=== PATIENT | female | born 1970 | race Caucasian/White ===

== ENCOUNTER 2020-07-08 15:47 | Outpatient (CLI) | payer OTHER, SELFPAY ==
[2020-07-08 16:14] LABS: Basophils Absolute Auto 0.08 K/mm3 (0.00-0.10); Basophils Percent Auto 1.2 % (0.0-1.0); Eosinophils Absolute Auto 0.19 K/mm3 (0.02-0.50); Eosinophils Percent Auto 2.9 % (1.0-6.0); Hematocrit 41.3 % (35.0-49.0); Hemoglobin 13.8 g/dL (12.0-15.0); Immature Granulocyte Absolute 0.01 K/mm3 (0.00-0.00); Immature Granulocyte Percent A 0.2 % (0.0-0.0); Lymphocytes Absolute Auto 2.79 K/mm3 (1.10-4.50); Mean Corpuscular HGB Conc 33.4 g/dL (32.0-36.0); Mean Corpuscular Hemoglobin 31.7 pg (27.0-31.0); Mean Corpuscular Volume 94.7 fL (78.0-102.0); Mean Platelet Volume 10.5 fl (9.2-11.8); Monocytes Absolute Auto 0.46 K/mm3 (0.10-0.90); Monocytes Percent Auto 7.1 % (2.0-11.0); Neutrophils Percent Auto 45.6 % (50.0-70.0); Platelet Count Result 272 K/mm3 (150-420); Red Blood Count 4.36 M/mm3 (4.20-5.40); Red Cell Distribution Width 13.1 % (11.6-14.4); White Blood Count 6.5 K/mm3 (4.8-10.8)
[2020-07-08 17:35] LABS: Alanine Aminotransferase 19 U/L (14-59); Albumin Level 2.6 g/dL (3.4-5.0); Alkaline Phosphatase 97 U/L (46-116); Anion Gap 11 mmol/L (8-16); Aspartate Amino Transferase 11 U/L (15-37); Bilirubin,Total 0.5 mg/dL (0.00-1.00); Blood Urea Nitrogen 19 mg/dL (7-18); Calcium 10.1 mg/dL (8.5-10.1); Carbon Dioxide 27 mmol/L (21-32); Chloride 103 mmol/L (98-108); Cholesterol 204 mg/dL (0-200); Estimated Glomerular Filt Rate 56; Free T4 Free Thyroxine 0.91 ng/dL (0.76-1.46); Glucose 88 mg/dL (70-99); HDL Direct 54 mg/dL (40-60); LDL Cholesterol Calculated 133 mg/dL (<130); Osmolality Calculated 293 mOsm/kg (285-295); Potassium 4.1 mmol/L (3.5-5.1); Sodium 141 mmol/L (136-145); Thyroid Stimulating Hormone 0.73 uIU/mL (0.36-3.74); Total Protein 7.5 g/dL (6.4-8.2); Triglycerides 85 mg/dL (0-150)
[2020-07-12 23:26] LABS: Valproic Acid 49.5 mg/L (50.0-100.0)
== END 2020-07-08 15:48 | disposition home or self-care (01) ==
PROVIDERS: PCP Family Medicine
DX: Z79.899 Other long term (current) drug therapy (principal)
CPT/HCPCS: 36415; 80053; 80061; 80164; 84439; 84443; 85025

== ENCOUNTER 2020-10-20 11:00 | Outpatient (RCR) | payer OTHER, SELFPAY ==
--- NOTE | 2020-10-20 12:01 | PTOPEVAL ---
Thank you for referring Patricia Pink to [facility].? The patient is scheduled to be seen for therapy? ___3_x/week for 12 visits. Please review, sign, date and return this plan of care CRYSTAL. I agree with and certify that the following plan of care is medically necessary. Referring Physician Date Admitting Provider: Attending Provider: DRU JORDAN Referring Provider: CARYN Outpatient Evaluation Start: 10/20/20 08:03 Freq: Status: Active Protocol: Document 10/20/20 11:11 ACR (Rec: 10/20/20 12:01 ACR [id number]) Therapy Assessment Status Assessment Status Assessment Status Evaluation Evaluation Information Problem Diagnosis R shoulder pain Onset 09/27/20 Subjective Information Patient states that she has Query Text:As Reported By Patient/ had two surgeries on the R Family shoulder. About 6 weeks ago she slipped and fell and heard a loud pop. She went to the doctor recently and got an X- ray which was negative and a cortizone shot which has helped with the pain. She is going back to the MD on . She states she has had therapy for her shoulder before. Patient states that she is having difficulty sleeping, carrying objects, folding and hanging up clothes , driving, and lifting objects . 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 Hand Dominance Right Activity of Daily Living Ability Independent Indoor/Home Mobility Independent Community Mobility Independent Stairs Ability Independent Functional Cognition (Planning, Shopping Independent , Taking Medications) Cooking Yes Cleaning Yes Laundry Yes Shopping Yes Driving Yes Pain Assessment Timing of Pain Assessment Timing of Pain Assessment Pre-Treatment Pain Scale Pain Scale Used Numeric (1 - 10) Self Report Pain Assessment Right Shoulder(s) Reported Pain Level 3 Pain Description Aching,Crushing Lowest Pain Intensity 1 Greatest Pain Intensity 7 Pain Score Pain Score 3: Self Report Interventions Used Interventions Used By Clinicians Activity or ADL's,Edu
--- NOTE | 2020-11-16 13:24 | PCPTNOTE ---
patient cancelled appt today due to a migraine. ANGELIQUE
--- NOTE | 2020-12-03 08:33 | PCPTNOTE ---
Patient participated in 9 visits for R shoulder pain. The patient was called and no call was returned so the patient is to be discharged at this time. Please refer to last treatment note for discharge status. Thank you, NERI SamayoaT
== END 2020-11-18 09:13 | disposition home or self-care (01) ==
LOC: CHSPT 11:00
DX: M25.511 Pain in right shoulder (principal)
CPT/HCPCS: 97014; 97110; 97161; G0283

== ENCOUNTER 2022-05-30 13:56 | Emergency (ER) | payer OTHER, SELFPAY ==
[2022-05-30] VITALS (7 sets, daily range): BP systolic 106–127; BP diastolic 61–74; PULSE 53–90; RESP 16–18; TEMP 36.4–36.7; O2SAT 96–100
--- NOTE | ~2022-05-30 | CT_ITS ---
EXAMINATION: CT diagnostic chest wo con DATE: 05/30/2022 17:33 INDICATION: Chest and back pain when coughing TECHNIQUE: Computed tomography (CT) of the chest was performed without intravenous contrast. The dose -length product (DLP) was 156.59 mGy-cm. Automated exposure control and iterative reconstruction tech nique were employed. COMPARISON: None FINDINGS: There is mild to moderate emphysema. Mild dependent atelectasis is noted. No pleural effusi on or pneumothorax. There are bilateral breast implants. Calcified right hilar and right paratracheal lymph nodes are consistent with old granulomatous disease. No pathologically enlarged thoracic lymph nodes are identified. The heart size is normal. There is severe thoracic spondylosis. Punctate calci fications in otherwise normal appearing liver and spleen likely represent healed granulomatous diseas e. The gallbladder is surgically absent. IMPRESSION: 1. Mild atelectasis. Reviewed, dictated and finalized at location A. IMPRESSION: 1. Mild atelectasis.
--- NOTE | ~2022-05-30 | XR_ITS ---
EXAMINATION: XR chest 1V portable INDICATION: Chest pain TECHNIQUE: Portable AP chest at 1447 hours COMPARISON: None available FINDINGS: There are minimal airspace opacities of the right lung base. No pleural effusion or pneumot horax. The heart size is normal. A calcified right hilar lymph nodes consistent with old granulomatou s disease. There is a left-sided breast implant. Suture anchors are noted in the right humeral head. IMPRESSION: 1. Minimal right basilar airspace opacity, consistent with atelectasis versus pneumonia. Reviewed, dictated and finalized at location A. IMPRESSION: 1. Minimal right basilar airspace opacity, consistent with atelectasis versus p neumonia.
--- NOTE | 2022-05-30 14:28 | ECG_ITS ---
Measurements Intervals [place] Rate: 49 P: 58 TN: 140 QRS: 22 QRSD: 99 T: 44 QT: 432 QTc: 390 Interpretive Statements SINUS BRADYCARDIA OTHERWISE NORMAL ECG NO PREVIOUS ECG AVAILABLE FOR COMPARISON Electronically Signed On 05-31-2022 13:59:56 CDT by Lonnie Mcrae M.D.
[2022-05-30 14:50] LABS: Basophils Absolute Auto 0.07 K/mm3 (0.00-0.10); Basophils Percent Auto 0.9 % (0.0-1.0); Eosinophils Absolute Auto 0.18 K/mm3 (0.02-0.50); Eosinophils Percent Auto 2.2 % (1.0-6.0); Hematocrit 41.5 % (35.0-49.0); Hemoglobin 13.8 g/dL (12.0-15.0); Immature Granulocyte Absolute 0.02 K/mm3 (0.00-0.00); Immature Granulocyte Percent A 0.2 % (0.0-0.0); Lymphocytes Absolute Auto 2.47 K/mm3 (1.10-4.50); Lymphocytes Percent Auto 30.8 % (18.0-42.0); Mean Corpuscular HGB Conc 33.3 g/dL (32.0-36.0); Mean Corpuscular Hemoglobin 30.7 pg (27.0-31.0); Mean Corpuscular Volume 92.2 fL (78.0-102.0); Mean Platelet Volume 9.8 fl (9.2-11.8); Monocytes Absolute Auto 0.54 K/mm3 (0.10-0.90); Monocytes Percent Auto 6.7 % (2.0-11.0); Neutrophils Absolute Auto 4.8 K/mm3 (1.7-7.2); Neutrophils Percent Auto 59.2 % (50.0-70.0); Platelet Count Result 289 K/mm3 (150-420); Red Cell Distribution Width 13.7 % (11.6-14.4)
[2022-05-30 14:51] LABS: Add Urine Microscopic? YES; Appearance Urine Clear (Clear); Bilirubin Urine Negative (Negative); Blood Urine Negative (Negative); Color Urine Yellow (Yellow); Glucose Urine UA Negative (Negative); Ketones Urine Negative (Negative); Leukocyte Esterase Ur Trace (Negative); Nitrate Urine Negative (Negative); Protein Urine Negative (Negative); Urobilinogen Urine 0.2 mg/dL (0.2-1.0)
[2022-05-30 14:57] LABS: RBC Urine 0-2 /hpf (0-2); Squamous Epithelial Cell Urine Few /hpf (Few); WBC Urine 0-3 /hpf (0-3)
[2022-05-30 14:58] LABS: Bacteria Urine Trace /hpf
[2022-05-30] MEDS: methylPREDNISolone SOD SUCC 125 MG VIAL IM (15:06)
[2022-05-30] MEDS: KETOROLAC 30 MG/ML VIAL (*BKC) IM (15:07)
[2022-05-30 15:08] LABS: Alanine Aminotransferase 14 U/L (14-59); Albumin Level 3.7 g/dL (3.4-5.0); Alkaline Phosphatase 97 U/L (46-116); Anion Gap 8 mmol/L (8-16); Aspartate Amino Transferase 12 U/L (15-37); Bilirubin,Total 0.4 mg/dL (0.00-1.00); Blood Urea Nitrogen 12 mg/dL (7-18); Calcium 9.1 mg/dL (8.5-10.1); Carbon Dioxide 29 mmol/L (21-32); Chloride 104 mmol/L (98-108); Estimated CRCL calculation 65 ml/min; Estimated Glomerular Filt Rate > 60; Glucose 111 mg/dL (70-99); Osmolality Calculated 292 mOsm/kg (285-295); Potassium 3.9 mmol/L (3.5-5.1); Sodium 141 mmol/L (136-145); Total Protein 6.9 g/dL (6.4-8.2); Troponin I 5.3 ng/L (0.00-60.4)
--- NOTE | 2022-05-30 15:10 | PC.NURSE ---
WARM BLANKETS PROVIDED TO PT. PT DENIES ANY NEEDS AT THIS TIME. PT IS AWAITING EKG AND NEB TX. PT IS AWARE OF PLAN OF CARE. NAD NOTED. WILL CONTINUE TO MONITOR.
[2022-05-30] MEDS: IPRATROPIUM 0.5 MG/ALBUTEROL SULFATE 2.5 MG AMPUL.NEB 3 ML INHALATION (15:26)
--- NOTE | 2022-05-30 16:57 | PC.NURSE ---
PEPSI PROVIDED REQUESTED. NAD AT THIS TIME. PT IS AWAITING ERP DECISION. WILL CONTINUE TO MONITOR.
--- NOTE | 2022-05-30 18:00 | ED.URI ---
HPI - URI/Sore Throat General Chief Complaint: Upper Respiratory Infection Stated Complaint: COUGH/CHEST AND BACK HURT WHEN BREATH/CONGESTION Time Seen by Provider: 05/30/22 13:59 Source: patient and RN notes reviewed Mode of arrival: ambulatory Limitations: no limitations History of Present Illness MD elicited complaint: cough and other (chest wall pain) Onset (ago): day(s) (2) Consistency: constant and progressively worsening Severity: mild Pain scale (0-10): 4 Able to tolerate fluids by mouth: Yes Exacerbating factors: deep breaths Relieving factors: OTC cold medicine Associated symptoms: cough, chest pain and shortness of breath Related Data Home Medications Medication Instructions Recorded Confirmed citalopram 40 mg tablet 40 mg PO DAILY 05/30/22 05/30/22 divalproex 500 mg tablet,extended 500 mg PO BID 05/30/22 05/30/22 release 24 hr omeprazole 40 mg capsule,delayed 40 mg PO DAILY 05/30/22 05/30/22 release Allergies Allergy/AdvReac Type Severity Reaction Status Date / Time Sulfa (Sulfonamide AdvReac Unknown Verified 05/30/22 14:25 Antibiotics) Review of Systems Review of Systems: All systems reviewed & are unremarkable except as noted in HPI and below Constitutional: Constitutional: Reports no additional constitutional complaints Eyes: Eyes: Reports no additional eye complaints ENT: Reports system reviewed and no additional complaints, except as documented Cardiovascular: Cardiovascular: Reports no additional cardiovascular complaints and Reports chest pain Respiratory: Respiratory: Reports no additional respiratory complaints, Reports chest congestion, Reports cough and Reports dyspnea Gastrointestinal: Gastrointestinal: Reports no additional gastrointestinal complaints Genitourinary: Genitourinary: Reports no additional female genitourinary complaints Musculoskeletal: Musculoskeletal: Reports no additional musculoskeletal complaints Integumentary/Breasts: Skin/Breast: Reports system reviewed and no additional complaints, except as docu Neurologic: Reports system reviewed and no additional complaints, except as documented Psychiatric: Psychiatric: Reports no additional psychiatric complaints Endocrine: Endocrine: Reports no additional endocrine complaints Hematologic/Lymphatic: Hematologic/Lymphatic: Reports no additional hematologic/lymphatic complaints Allergic/Immunologic: Allergic/Immunologic: Reports no additional allergic/immunologic complaints PMFSH Past Medical History Medical History (Updated 06/04/22 @ 07:21 by Olga Peoples MD) Chest wall pain Viral syndrome Exam Const: General: no acute distress and well nourished Nutritional Appearance: well nourished Orientation/consciousness: patient oriented x3 Limitations: no limitations HENMT: Head: normal to inspection Ears: external ears normal, TM's normal bilaterally and EAC's normal Face/Nose/Sinus: Normal external nose present, Normal nares present, normal facial exam and sinuses nontender Face and sinus: normal facial exam and sinuses nontender Mouth: Yes Normal oral and palatal mucosa present and Yes moist mucous membranes Teeth and gingiva: dentition normal Throat: posterior oropharynx normal Eyes: Conjunctivae: conjunctivae normal Pupils: Equal, round and reactive pupils present EOM: EOMs intact bilaterally Neck: Neck: normal visual inspection, no lymphadenopathy and no meningeal signs Chest: Chest palpation & inspection: normal inspection of the chest Resp: Effort & Inspection: normal respiratory effort Auscultation: rhonchi and wheezes Cardio: Rate: regular rate Rhythm: regular rhythm GI: GI Palp: Yes Soft to palpation and No Tenderness to palpation present (GI) Auscultation: normal bowel sounds : General: Yes bladder normal to palpation and Yes no CVA tenderness Bimanual exam- vagina & uterus: bladder normal to palpation Back/Spine/Pelvis: Back: no CVA tenderness Skin: General skin
--- NOTE | 2022-05-30 18:00 | PC.NURSE ---
V/O WAS GIVEN BY DR LOMAS TO DC IV AND IVF.
== END 2022-05-30 18:15 | disposition home or self-care (01) ==
PROVIDERS: Emergency Provider Emergency Medicine
DX: J06.9 Acute upper respiratory infection, unspecified (principal); J40 Bronchitis, not specified as acute or chronic; B34.9 Viral infection, unspecified
CPT/HCPCS: 36415; 36600; 71045; 71250; 80053; 81001; 84484; 85025; 93005; 94640; 96372; 99284; J1885; J2930

== ENCOUNTER 2022-06-14 15:09 | Emergency (ER) | payer OTHER, SELFPAY ==
--- NOTE | ~2022-06-14 | XR_ITS ---
EXAMINATION: XR chest 2V Exam Date/Time: 06/14/2022 17:30 CDT HISTORY: cough Comparison: 05/30/2022, CT and x-ray. RESULT: Lines, tubes, and devices: Bilateral breast augmentation. Calcification of the left implant capsule. Lungs and pleura: Emphysematous change. Cardiomediastinal silhouette: Hilar node calcification, otherwise unremarkable. Other: No acute osseous or upper abdominal finding. IMPRESSION: No acute cardiopulmonary process. Reviewed, dictated and finalized at location K.
[2022-06-14 15:17] VITALS: BP 145/88; PULSE 89; RESP 17; TEMP 37.1; O2SAT 97
--- NOTE | 2022-06-14 15:42 | ED.GENADULT ---
HPI - General Adult General Chief complaint: Shortness of Breath/Dyspnea Stated complaint: trouble breathing Time Seen by Provider: 06/14/22 15:41 Source: patient Mode of arrival: ambulatory Limitations: no limitations History of Present Illness HPI narrative: Patient is a 51-year-old white female with approximately 66 pack years complains of having a bronchitis 2 weeks ago she was treated with a Medrol Dosepak amoxicillin and albuterol meter dose inhaler she got better but her cough persisted and she has had 3 or 4 days worsening productive of a brownish green sputum and occasional headache. She is short of breath with exertion. complains of a headache last few days the top of her head throbbing. She has taken Tylenol and ibuprofen without much help. Related Data Home Medications Medication Instructions Recorded Confirmed citalopram 40 mg tablet 40 mg PO DAILY 05/30/22 06/14/22 divalproex 500 mg tablet,extended 500 mg PO BID 05/30/22 06/14/22 release 24 hr omeprazole 40 mg capsule,delayed 40 mg PO DAILY 05/30/22 06/14/22 release Allergies Allergy/AdvReac Type Severity Reaction Status Date / Time Sulfa (Sulfonamide AdvReac Unknown Verified 06/14/22 15:25 Antibiotics) Review of Systems Review of Systems: All systems reviewed & are unremarkable except as noted in HPI and below Constitutional: Constitutional: Reports no additional constitutional complaints, Denies chills, Denies fatigue, Denies fever(s) and Denies weakness Eyes: Eyes: Reports no additional eye complaints ENT: Reports system reviewed and no additional complaints, except as documented Cardiovascular: Cardiovascular: Reports no additional cardiovascular complaints and Denies chest pain Respiratory: Respiratory: Reports as per HPI, Reports no additional respiratory complaints, Reports chest congestion, Reports cough, Reports dyspnea and Reports wheezing Gastrointestinal: Gastrointestinal: Reports no additional gastrointestinal complaints Genitourinary: Genitourinary: Reports no additional female genitourinary complaints Musculoskeletal: Musculoskeletal: Reports no additional musculoskeletal complaints Integumentary/Breasts: Skin/Breast: Reports system reviewed and no additional complaints, except as docu Neurologic: Reports system reviewed and no additional complaints, except as documented, Reports as per HPI and Reports headache(s) PMFSH Past Medical History Medical History Bipolar depression Chest wall pain Viral syndrome Surgical History Surgical History Hx of appendectomy Family History Family History (Updated 06/14/22 @ 16:24 by Lonnie Levy MD) Other Family history of lung cancer Exam Const: General: healthy appearing Nutritional Appearance: well nourished Orientation/consciousness: patient oriented x3 Limitations: no limitations Other: white female appears in no apparent distress she looks older than her stated age. Head is normocephalic atraumatic eyes conjunctiva pink sclera nonicteric. Oropharynx is clear with moist mucous membranes without exudates. Neck is supple no lymphadenopathy. Lungs show diffuse wheezes with fair air exchange without rhonchi or rales. Heart is regular rate rhythm without murmurs gallops or rubs. Abdomen is soft and nontender no hepatosplenomegaly or masses no CVA tenderness no abdominal bruits. Extremities no cyanosis clubbing or edema. Negative Holmans sign. Neurological she is alert and oriented x4 motor and sensory grossly intact. Gait is normal. Speech is normal. Course Course Emergency Course: Patient was given a DuoNeb. Blood cultures were drawn. Her albuteroll nebulizer helped quite a bit. She demonstrate poor technique with use of her meter dose inhaler. She is given education by myself with this regard. She is given Toradol 30 mg IV
--- NOTE | 2022-06-14 15:55 | ECG_ITS ---
Measurements Intervals [place] Rate: 76 P: 68 CT: 140 QRS: 1 QRSD: 96 T: 39 QT: 351 QTc: 395 Interpretive Statements SINUS RHYTHM WITH SINUS ARRHYTHMIA POSSIBLE LEFT ATRIAL ENLARGEMENT BASELINE ARTIFACT- I, II, III, AVR, AVL, AVF BORDERLINE ECG COMPARED TO ECG 05/30/2022 15:33:44 SINUS RHYTHM NOW PRESENT SINUS ARRHYTHMIA NOW PRESENT Electronically Signed On 06-14-2022 21:07:50 CDT by Brant Samuel D.O.
[2022-06-14] MEDS: IPRATROPIUM 0.5 MG/ALBUTEROL SULFATE 2.5 MG AMPUL.NEB 3 ML INHALATION (16:20)
[2022-06-14 16:21] VITALS: PULSE 87; RESP 18; O2SAT 97
[2022-06-14 16:32] VITALS: PULSE 88; RESP 18; O2SAT 99
[2022-06-14 16:39] LABS: Basophils Absolute Auto 0.05 K/mm3 (0.00-0.10); Basophils Percent Auto 0.3 % (0.0-1.0); Eosinophils Absolute Auto 0.15 K/mm3 (0.02-0.50); Eosinophils Percent Auto 0.9 % (1.0-6.0); Hematocrit 42.8 % (35.0-49.0); Hemoglobin 14.7 g/dL (12.0-15.0); Immature Granulocyte Absolute 0.07 K/mm3 (0.00-0.00); Immature Granulocyte Percent A 0.4 % (0.0-0.0); Lymphocytes Absolute Auto 2.24 K/mm3 (1.10-4.50); Lymphocytes Percent Auto 13.1 % (18.0-42.0); Mean Corpuscular HGB Conc 34.3 g/dL (32.0-36.0); Mean Corpuscular Hemoglobin 31.3 pg (27.0-31.0); Mean Corpuscular Volume 91.1 fL (78.0-102.0); Mean Platelet Volume 10.1 fl (9.2-11.8); Monocytes Absolute Auto 0.85 K/mm3 (0.10-0.90); Neutrophils Absolute Auto 13.7 K/mm3 (1.7-7.2); Neutrophils Percent Auto 80.3 % (50.0-70.0); Platelet Count Result 334 K/mm3 (150-420); Red Cell Distribution Width 13.6 % (11.6-14.4); White Blood Count 17.1 K/mm3 (4.8-10.8)
[2022-06-14 16:55] LABS: D Dimer 0.38 mg/L (0.19-0.50); Partial Thromboplastin Time 27.1 SEC (23.90-30.70); Prothrombin Time 10.9 Seconds (9.50-12.10)
[2022-06-14 17:01] LABS: Alanine Aminotransferase 18 U/L (14-59); Albumin Level 3.9 g/dL (3.4-5.0); Alkaline Phosphatase 117 U/L (46-116); Anion Gap 8 mmol/L (8-16); Aspartate Amino Transferase 13 U/L (15-37); Bilirubin,Total 0.5 mg/dL (0.00-1.00); Blood Urea Nitrogen 12 mg/dL (7-18); Calcium 9.1 mg/dL (8.5-10.1); Carbon Dioxide 28 mmol/L (21-32); Chloride 102 mmol/L (98-108); Estimated CRCL calculation 59 ml/min; Estimated Glomerular Filt Rate > 60; Glucose 92 mg/dL (70-99); NT Pro B Type Natriuretic Pept 50 pg/mL (0-125); Osmolality Calculated 285 mOsm/kg (285-295); Potassium 3.6 mmol/L (3.5-5.1); Sodium 138 mmol/L (136-145); Total Protein 7.7 g/dL (6.4-8.2); Troponin I 4.1 ng/L (0.00-60.4)
[2022-06-14] MEDS: KETOROLAC 30 MG/ML VIAL (*BKC) IV PUSH (17:09)
[2022-06-14 17:14] LABS: Influenza A QL RT-PCR Negative (Negative); Influenza B QL RT-PCR Negative (Negative)
[2022-06-14 17:21] LABS: RSV RNA, RT-PCR Negative (Negative); SARS-CoV-2 RNA PCR Negative (Negative)
[2022-06-14 17:41] VITALS: BP 146/91; PULSE 95; RESP 18; TEMP 36.8; O2SAT 97
--- NOTE | 2022-06-14 17:41 | PC.NURSE ---
PT HAS RETURNED FROM RADIOLOGY. NAD NOTED. PT REPORTS SHE IS FEELING BETTER POST NEB TX. MEDICATION WAS ADMINISTERED FOR HER HEADACHE. NAD NOTED. WILL CONTINUE TO MONITOR.
== END 2022-06-14 18:25 | disposition home or self-care (01) ==
PROVIDERS: Emergency Provider Emergency Medicine
DX: J44.1 Chronic obstructive pulmonary disease with (acute) exacerbation (principal)
CPT/HCPCS: 36415; 71046; 80053; 83880; 84484; 85025; 85380; 85610; 85730; 87040; 87502; 87637; 93005; 94640; 96374; 99284; J1885; U0003; U0005

== ENCOUNTER 2022-07-28 11:45 | Emergency (ER) | payer OTHER, SELFPAY ==
[2022-07-28 13:03] VITALS: BP 137/80; PULSE 83; RESP 20; TEMP 36.5; O2SAT 98
--- NOTE | 2022-07-28 14:01 | ED.URI ---
HPI - URI/Sore Throat General Chief Complaint: Upper Respiratory Infection Stated Complaint: Headache Time Seen by Provider: 07/28/22 14:00 Source: patient Mode of arrival: ambulatory Limitations: no limitations History of Present Illness HPI Narrative: 52 year old female with complaints of headache, nausea and vomiting, chills, sinus drainage no known fevers since yesterday morning. Patient denies any known ill contacts. Patient has not had COVID vaccinations or flu Shot. Patient reports that she has been taking Tylenol,Ibuprofen and Excedrin for her symptoms. Patient does have history of COPD and also tobacco abuse denies any acute shortness of breath admits to some dry cough. MD elicited complaint: other (headache and nausea and vomiting) Pertinent past history: COPD and other (tobacco abuse) Onset (ago): day(s) (day 2 of symptoms) Pain scale (0-10): 6 Treatments prior to arrival: acetaminophen, ibuprofen and other (excedrin) Related Data Home Medications Medication Instructions Recorded Confirmed citalopram 40 mg tablet 40 mg PO DAILY 05/30/22 07/28/22 divalproex 500 mg tablet,extended 500 mg PO BID 05/30/22 07/28/22 release 24 hr omeprazole 40 mg capsule,delayed 40 mg PO DAILY 05/30/22 07/28/22 release Allergies Allergy/AdvReac Type Severity Reaction Status Date / Time Sulfa (Sulfonamide AdvReac Unknown Verified 07/28/22 13:13 Antibiotics) Review of Systems Review of Systems: CONSTITUTIONAL: Reports malaise, chills, sweats, or fever. EYES: Denies visual changes, redness, or discharge. ENT: Reports rhinorrhea, congestion, sinus pain, no otalgia and sore throat. CARDIOVASCULAR: Denies chest pain, palpitations, or edema. RESPIRATORY: Reports cough.? Denies dyspnea. GASTROINTESTINAL: Denies abdominal pain, positive for nausea, vomiting,no diarrhea SKIN: Denies rash or itching. MUSCULOSKELETAL: Reports myalgia. NEUROLOGIC:Reports headache. All systems reviewed & are unremarkable except as noted in HPI and below PMFSH Past Medical History Medical History (Updated 08/07/22 @ 22:42 by Annie Byrd NP) Bipolar depression Bronchitis Chest wall pain COPD (chronic obstructive pulmonary disease) Viral syndrome Surgical History Surgical History (Updated 08/07/22 @ 22:40 by Annie Byrd NP) H/O breast augmentation H/O: hysterectomy History of ankle surgery ORIF bilateral ankles History of repair of rotator cuff right Hx of appendectomy Hx of cervical spine surgery Hx of cholecystectomy Family History Family History (Updated 06/14/22 @ 16:24 by Lonnie Levy MD) Other Family history of lung cancer Social History Social History (Updated 08/07/22 @ 22:38 by Annie Byrd NP) Smoking packs per day: 2 Smoking cigarettes per day: 40.0 Years smoked: 30 Smoking pack-years: 60.00 Smoking status: Current every day smoker Alcohol intake: former Alcohol use details: no alcohol for 29 years Substance use type: does not use Gender identity (if verbalized by the patient): Female Comments At time of signature, agree with nursing past medical, surgical, social and family history. There is no relevant family history pertinent to the presenting complaint Exam Narrative: GENERAL: Well-appearing, well-nourished, and in no acute distress. HEAD: Normocephalic EYES: PERRLA, conjunctivae clear ENT: Nares clear, turbinates edematous and erythematous, clear discharge. Mucous membranes moist. TM pearly alegre with dull light reflex bilaterally; no tragal tenderness. Oropharynx erythematous without lesions. Tonsils not enlarged and without exudate, no drooling, no hoarseness, no trismus, uvula midline. NECK: Supple. No lymphadenopathy CHEST: Coarse to auscultation, breath sounds equal. No wheezing, rhonchi, rales, or stridor. No respiratory distress, speaks in full sentences. dry coughSAO2 98% on room air HEART: Regular rate and rhythm. No murmur
== END 2022-07-28 15:22 | disposition home or self-care (01) ==
PROVIDERS: Emergency Provider Registered Nurse; PCP Nurse Practitioner Family
DX: U07.1 COVID-19 (principal)
CPT/HCPCS: 87426; 87804; 99213; C9803; G0463

== ENCOUNTER 2022-12-10 19:15 | Emergency (ER) | payer OTHER, SELFPAY ==
[2022-12-10 19:25] VITALS: BP 142/80; PULSE 87; RESP 18; TEMP 36.7; O2SAT 98
--- NOTE | 2022-12-10 19:52 | ED.GENADULT ---
HPI - General Adult General Chief complaint: Skin/Abscess/Foreign Body Stated complaint: Skin Sore Source: patient Mode of arrival: ambulatory Limitations: no limitations History of Present Illness HPI narrative: Patient presents for evaluation of painful swollen lesion to the scalp for the last 4-5 days. No fever, chills, nausea, vomiting, purulent drainage from the affected area.. She is not diabetic. She smokes approximately 2 packs per day. She is not using any therapies to assist with her symptoms. Related Data Home Medications Medication Instructions Recorded Confirmed citalopram 40 mg tablet 40 mg PO DAILY 05/30/22 07/28/22 divalproex 500 mg tablet,extended 500 mg PO BID 05/30/22 07/28/22 release 24 hr omeprazole 40 mg capsule,delayed 40 mg PO DAILY 05/30/22 07/28/22 release albuterol sulfate PRN sob 12/10/22 Allergies Allergy/AdvReac Type Severity Reaction Status Date / Time Sulfa (Sulfonamide AdvReac Unknown Verified 12/10/22 19:32 Antibiotics) Review of Systems Review of Systems: CONSTITUTIONAL: Denies fever, chills, or sweats. EYES: Denies visual changes, redness, or discharge. ENT: Denies rhinorrhea, congestion, sore throat, or otalgia. CARDIOVASCULAR: Denies chest pain, palpitations, or edema. RESPIRATORY: Denies cough or dyspnea. GASTROINTESTINAL: Denies abdominal pain, nausea, vomiting, or diarrhea. GENITOURINARY: Denies dysuria or hematuria. SKIN: Reports painful, swelling the lesion to the scalp. MUSCULOSKELETAL: Denies back pain, joint pain, or myalgia. NEUROLOGIC: Denies headache, numbness, dizziness, or weakness. PSYCHIATRIC: Denies anxiety or depression. [facility] Past Medical History Medical History Bipolar depression Bronchitis Chest wall pain COPD (chronic obstructive pulmonary disease) Viral syndrome Surgical History Surgical History H/O breast augmentation H/O: hysterectomy History of ankle surgery ORIF bilateral ankles History of repair of rotator cuff right Hx of appendectomy Hx of cervical spine surgery Hx of cholecystectomy Family History Family History Other Family history of lung cancer Social History Social History Smoking packs per day: 2 Smoking cigarettes per day: 40.0 Years smoked: 30 Smoking pack-years: 60.00 Smoking status: Current every day smoker Alcohol intake: former Alcohol use details: no alcohol for 29 years Substance use type: does not use Gender identity (if verbalized by the patient): Female Exam Narrative: GENERAL: Well-appearing, well-nourished, and in no acute distress. HEAD: Normocephalic, atraumatic. EYES: PERRLA and EOMI. ENT: Nares clear, no rhinorrhea or epistaxis. Mucous membranes moist. Oropharynx without tonsillar hypertrophy exudate or other lesions. Bilateral TMs pearly alegre nonbulging NECK: Supple. No adenopathy or masses. No carotid bruits or JVD CHEST: Clear to auscultation. No respiratory distress. No wheezes rales or rhonchi HEART: Regular rate and rhythm. No murmur heard. Normal peripheral pulses. ABDOMEN: Soft, nontender, nondistended, normal active bowel sounds. EXTREMITIES: Normal range of motion. No edema. SKIN: There is some dried serosanguineous drainage noted around hair follicles to the parietal regions of her scalp with approximately 3 cm area of surrounding erythema NEURO: No focal deficits. Alert and oriented x3. PSYCH: Normal mood and affect. Course Course Emergency Course: This is a 52 old female who presented for evaluation of a painful swollen lesion to her scalp. There does not appear to be drainable fluid collection. Exam is consistent with folliculitis. Allergy to sulfa so will treat with doxycycline. [id number]
== END 2022-12-10 19:52 | disposition home or self-care (01) ==
PROVIDERS: Emergency Provider Nurse Practitioner; PCP Nurse Practitioner Family
DX: L73.9 Follicular disorder, unspecified (principal); F17.210 Nicotine dependence, cigarettes, uncomplicated; J44.9 Chronic obstructive pulmonary disease, unspecified; F31.9 Bipolar disorder, unspecified
CPT/HCPCS: 99213; G0463

== ENCOUNTER 2023-06-02 15:22 | Emergency (ER) | payer OTHER, SELFPAY ==
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
[2023-06-02 15:22] VITALS: BP 128/81; PULSE 96; RESP 14; TEMP 36.8; O2SAT 98
[2023-06-02] MEDS: ACETAMINOPHEN 500 MG TABLET 1000 MG PO (15:52)
[2023-06-02] MEDS: methocarbamoL 500 MG TABLET 1000 MG PO (15:53)
[2023-06-02] MEDS: KETOROLAC (*BKC) 60 MG/2 ML VIAL IM (15:54)
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
[2023-06-02 18:07] VITALS: BP 117/73; PULSE 76; RESP 18; TEMP 36.5; O2SAT 95
== END 2023-06-02 18:08 | disposition home or self-care (01) ==
PROVIDERS: Emergency Provider Emergency Medicine; PCP Nurse Practitioner Family
DX: S29.9XXA Unspecified injury of thorax, initial encounter (principal); J44.9 Chronic obstructive pulmonary disease, unspecified; F17.210 Nicotine dependence, cigarettes, uncomplicated; V89.2XXA Person injured in unspecified motor-vehicle accident, traffic, initial encounter
CPT/HCPCS: 71250; 96372; 99284; A9270; J1885

== ENCOUNTER 2023-08-15 14:51 | Outpatient (RCR) | payer OTHER, SELFPAY ==
[2023-08-15 14:49] VITALS: BP_SYST 157
--- NOTE | 2023-08-15 15:41 | OPREHPOC ---
Outpatient Therapy Plan of Care This is a Multidisciplinary Plan of Care that may contain components documented by all disciplines (PT, OT, and ST.) PT Problem 1 PT Problem #1 Knowledge Deficit PT Goal 1 Goal Patient to demonstrate independence with HEP Target Visit 4 PT Problem 2 PT Problem #2 Pain PT Goal 1 Goal 1. Patient to report highest pain at 2/10 2. Patient to report ability to sleep with no disturbance due to R shoulder pain Target Visit 8 PT Problem 3 PT Problem #3 Impaired Range of Motion PT Goal 1 Goal Patient to demonstrate 160 deg of R shoulder flexion to improve ability to reach into cabinets for house hold tasks Target Visit 8 PT Problem 4 PT Problem #4 Impaired Strength PT Goal 1 Goal Patient to demonstrate 4+/5 strength of the R shoulder to return to house hold tasks at PLOF Target Visit 8 PT Problem 5 PT Problem #5 Impaired Functional Mobil PT Goal 1 Goal 1. Patient to score 20% improvement on QuickDash 2. Patient to report ability to bathe with no increase in R shoulder pain 3. Patient to report abiltiy to lift her grandson with no increase in R shoulder pain. Target Visit 8
--- NOTE | 2023-08-15 15:41 | PTOPEVAL1 ---
Assessment and note entered by Pita Morgan DPT Evaluation Information Assessment Status Evaluation Diagnosis R shoulder pain Subjective Information Patient reports she has had 2 shoulder surgeries since 2017 for the R RTC and reports she has torn the RTC again. She reports she may need a shoulder replacement if PT does not help. She reports she has difficulty with lifting of dishes, sleeping, and brushing her hair. She reports pain is at the deltoid region. She is not currently working. She returns to MD in 6 weeks. Reported Pain Level Pain Score 5: Self Report Assessment PT Clinical Summary Mrs. Pink is a 53 year old female who presents to PT with R shoulder pain. Patient demonstrates decreased R shoulder ROM and decreased R shoulder strength impairing her ability to left objects for house hold tasks, sleep and bathe. She will benefit from skilled PT to address impairments and return to PLOF. Plan of Care Interventions Electrical Stimulation,Hot Pack/Cold Pack,Manual Therapy,Neuro Re-education,Patient/Caregiver Educati,Therapeutic Activities,Therapeutic Exercise PT Services Indicated Yes Treatment Frequency and 2x weekly for 8 visits Duration These treatments will address the objective and functional deficits as defined above. The patient will be advanced safely and appropriately in order for the patient to progress towards his/her prior level of function. Additional exercises will be introduced and as well as a comprehensive home exercise program upon discharge, if needed, ?to ensure carryover of functional gains achieved in the clinic. This treatment plan has been reviewed and agreement upon by the patient.
--- NOTE | 2023-09-01 11:31 | PCPTNOTE ---
No call, no show. Patient was called, however, her voicemail is not set up.
[2023-09-19 15:18] VITALS: BP_SYST 157
--- NOTE | 2023-09-19 16:14 | OPREHPOC ---
Outpatient Therapy Plan of Care This is a Multidisciplinary Plan of Care that may contain components documented by all disciplines (PT, OT, and ST.) PT Problem 1 PT Problem #1 Knowledge Deficit PT Goal 1 Goal Patient to demonstrate independence with HEP Target Visit 4 Progress Met PT Problem 2 PT Problem #2 Pain PT Goal 1 Goal 1. Patient to report highest pain at 2/10 2. Patient to report ability to sleep with no disturbance due to R shoulder pain Target Visit 8 Progress Not Met PT Problem 3 PT Problem #3 Impaired Range of Motion PT Goal 1 Goal Patient to demonstrate 160 deg of R shoulder flexion to improve ability to reach into cabinets for house hold tasks Target Visit 8 Progress Not Met PT Problem 4 PT Problem #4 Impaired Strength PT Goal 1 Goal Patient to demonstrate 4+/5 strength of the R shoulder to return to house hold tasks at PLOF Target Visit 8 Progress Not Met PT Problem 5 PT Problem #5 Impaired Functional Mobil PT Goal 1 Goal 1. Patient to score 20% improvement on QuickDash 2. Patient to report ability to bathe with no increase in R shoulder pain 3. Patient to report abiltiy to lift her grandson with no increase in R shoulder pain. Target Visit 8 Progress Not Met
--- NOTE | 2023-09-19 16:14 | PTOPREEVAL ---
Assessment and note entered by Pita Morgan DPT Evaluation Information Assessment Status Discharge Diagnosis R shoulder pain Onset 08/09/24 Subjective Information Patient reports that she continues to have intense pain at the R shoulder. patient reports she has had more difficulty sleeping lately. she reports any reaching overhead or to the side results in a deep popping. she reports pain has not improved since starting PT. She reports compliance with HEP Reported Pain Level Pain Score 4: Self Report Assessment PT Clinical Summary Mrs. Pink has been seen for 8 visits of skilled PT from 08/15/23-09/19/23. Patient has made minimal progress towards goals at this time. She continues to lack strength of the R shoulder, most notedly into IR. She has pain with all motions with reports of a deep pop at end range. She continues to have difficulty with sleeping and completing house hold tasks. She will be discharged from skilled PT at this time due to lack of progression towards goal. Plan of Care Interventions Electrical Stimulation,Hot Pack/Cold Pack,Manual Therapy,Neuro Re-education,Patient/Caregiver Educati,Therapeutic Activities,Therapeutic Exercise PT Services Indicated No Treatment Frequency and DC to independent HEP Duration These treatments will address the objective and functional deficits as defined above. The patient will be advanced safely and appropriately in order for the patient to progress towards his/her prior level of function. Additional exercises will be introduced and as well as a comprehensive home exercise program upon discharge, if needed, ?to ensure carryover of functional gains achieved in the clinic. This treatment plan has been reviewed and agreement upon by the patient.
== END 2023-09-19 16:00 | disposition home or self-care (01) ==
LOC: CHSPT 14:51
PROVIDERS: Visit Provider Physician Assistant
DX: M25.311 Other instability, right shoulder (principal); M25.511 Pain in right shoulder; M25.512 Pain in left shoulder; M75.82 Other shoulder lesions, left shoulder
CPT/HCPCS: 97014; 97110; 97161; G0283

== ENCOUNTER 2023-09-30 23:42 | Emergency (ER) | payer OTHER, SELFPAY ==
[2023-09-30 23:50] VITALS: BP 140/80; PULSE 84; RESP 18; TEMP 36.6; O2SAT 97
[2023-10-01 00:22] LABS: Strep Group A RT-PCR NOT DETECTED (Negative)
[2023-10-01 00:32] LABS: SARS-CoV-2 RNA PCR Negative (Negative)
[2023-10-01 00:34] LABS: Influenza A QL RT-PCR Negative (Negative); Influenza B QL RT-PCR Negative (Negative); RSV RNA, RT-PCR Negative (Negative)
--- NOTE | 2023-10-01 00:44 | ED.URI ---
HPI - URI/Sore Throat General Chief Complaint: Upper Respiratory Infection Stated Complaint: sick Source: patient and family Mode of arrival: ambulatory Limitations: no limitations History of Present Illness HPI Narrative: This is a 53-year-old female that presents with a 2 week history of sinus congestion with some right ear pressure and muffled sensation with mild nonproductive cough with some no shortness no fever chills no nausea vomiting. MD elicited complaint: sore throat, nasal congestion and sinus pain Onset (ago): week(s) Consistency: constant Severity: moderate Description of mucous: clear Able to tolerate fluids by mouth: Yes Related Data Home Medications Medication Instructions Recorded Confirmed citalopram 40 mg tablet (Celexa) 40 mg PO DAILY 05/30/22 09/30/23 divalproex 500 mg tablet,extended 500 mg PO BID 05/30/22 09/30/23 release 24 hr (Depakote ER) sumatriptan succinate 100 mg 100 mg PO PRN PRN Migraine Headache 06/02/23 09/30/23 tablet (Imitrex) oxycodone-acetaminophen 5 mg-325 5 tablet PO Q6-8H PRN Pain, 09/30/23 09/30/23 mg tablet Moderate Allergies Allergy/AdvReac Type Severity Reaction Status Date / Time Sulfa (Sulfonamide AdvReac Unknown Verified 09/30/23 23:54 Antibiotics) Review of Systems Review of Systems: All systems reviewed & are unremarkable except as noted in HPI and below PMFSH Past Medical History Medical History Bipolar depression Bronchitis Chest wall pain COPD (chronic obstructive pulmonary disease) Viral syndrome Surgical History Surgical History H/O breast augmentation H/O: hysterectomy History of ankle surgery ORIF bilateral ankles History of repair of rotator cuff right Hx of appendectomy Hx of cervical spine surgery Hx of cholecystectomy Family History Family History Other Family history of lung cancer Social History Social History Smoking packs per day: 2 Smoking cigarettes per day: 40.0 Years smoked: 30 Smoking pack-years: 60.00 Smoking status: Current every day smoker Alcohol intake: former Alcohol use details: no alcohol for 29 years Substance use type: does not use Gender identity (if verbalized by the patient): Female Exam Const: General: healthy appearing and no acute distress Nutritional Appearance: well nourished Orientation/consciousness: patient oriented x3 HENMT: Other: Frontal maxillary sinus tenderness with palpation With right ear dullness Bilateral turbinates swelling and erythematous right greater than left. Neck: Neck: normal visual inspection, no lymphadenopathy and no meningeal signs Chest: Chest palpation & inspection: normal inspection of the chest Resp: Effort & Inspection: normal respiratory effort Auscultation: clear to auscultation bilaterally Cardio: Rate: regular rate Rhythm: regular rhythm GI: GI Palp: Yes Soft to palpation Course Course Emergency Course: Patient negative COVID negative influenza negative RSV as well as a negative strep test, has sinus congestion and pressure bilateral sinus frontal and maxillary sinuses with some right ear pressure and a muffled sensation and will start Zithromax 500mg 1 time dose and will send prescription to patient's pharmacy. Vital Signs Vital signs: Vital Signs Temperature 36.6 C 09/30/23 23:50 Pulse Rate 84 09/30/23 23:50 Respiratory Rate 18 09/30/23 23:50 Blood Pressure 140/80 09/30/23 23:50 Pulse Oximetry 97 09/30/23 23:50 Oxygen Delivery Room Air 09/30/23 23:50 Temperature 36.6 C 09/30/23 23:50 Pulse Rate 84 09/30/23 23:50 Respiratory Rate 18 09/30/23 23:50 Blood Pressure 140/80 09/30/23 23:50 Pulse Oximetry 97 09/30/23 23:50 Oxygen Delivery Room Air
[2023-10-01] MEDS: AZITHROMYCIN 250 MG TABLET 500 MG PO (00:47)
[2023-10-01 00:51] VITALS: BP 136/75; PULSE 85; RESP 18; TEMP 36.6; O2SAT 95
== END 2023-10-01 00:55 | disposition home or self-care (01) ==
PROVIDERS: Emergency Provider Emergency Medicine; PCP Nurse Practitioner Family
DX: J32.9 Chronic sinusitis, unspecified (principal); J44.9 Chronic obstructive pulmonary disease, unspecified; F17.210 Nicotine dependence, cigarettes, uncomplicated; Z79.899 Other long term (current) drug therapy; Z79.891 Long term (current) use of opiate analgesic; Z20.822 Contact with and (suspected) exposure to COVID-19
CPT/HCPCS: 87637; 87651; 99283; A9270

== ENCOUNTER 2023-12-28 10:12 | Outpatient (CLI) | payer OTHER, SELFPAY ==
--- NOTE | ~2023-12-28 | MR_ITS ---
MRI of the cervical spine Clinical History: Spondylosis, radiculopathy Technique: Axial T2-weighted and gradient images, and sagittal T1-weighted, T2-weighted, and STIR mary ges were acquired. Findings: No acute fracture or sublocation seen. No suspicious bone marrow signal abnormality seen. T here is anterior fusion from C4 to C5, with anterior plate and screws present. At C2-C3, there is no disc bulge or herniation. No spinal canal stenosis, cord compression, or defini te neural foraminal narrowing. At C3-C4, there is moderate degenerative disc narrowing. There is mild disc bulge. There is mild betito l stenosis without saba cord compression. There is probable bilateral neural foraminal narrowing wit h mild facet arthropathy. At C4-C5, there is fusion across the disc space. There is mild canal stenosis without saba cord comp ression. There is bilateral neural foraminal narrowing. At C5-C6, there is severe degenerative disc narrowing. There is disc osteophyte complex with canal st enosis but no saba cord compression. There is bilateral neural foraminal narrowing, severe. At C6-C7, there is advanced degenerative disc narrowing. There is minimal disc bulge with mild canal stenosis but no saba cord compression. There is bilateral significant neural foraminal narrowing. No abnormal signal seen in the spinal cord. Paravertebral soft tissues are unremarkable. Bilateral ma stoid effusions are noted. Impression: Moderate degenerative spondylosis throughout the cervical spine, as detailed above. Anterior fusion from C4 to C5. Reviewed, dictated and finalized at [facility]. Impression: Moderate degenerative spondylosis throughout the cervical spine, as detailed ab ove. Anterior fusion from C4 to C5.
== END 2023-12-28 10:13 | disposition home or self-care (01) ==
PROVIDERS: PCP Nurse Practitioner Family; Visit Provider Nurse Practitioner Adult Health
DX: M47.22 Other spondylosis with radiculopathy, cervical region (principal); M43.22 Fusion of spine, cervical region
CPT/HCPCS: 72141

== ENCOUNTER 2024-07-16 16:47 | Inpatient (IN) | payer OTHER, SELFPAY ==
--- NOTE | ~2024-07-16 | XR_ITS ---
XR chest 2V Ordering provider: Jose Zabala MD History: 54 years Female with . sob . Comparison: None. FINDINGS: MEDIASTINUM: The cardiac silhouette is not enlarged. Calcified hilar lymph nodes. LUNGS: No infiltrates, effusions or pneumothorax. Underlying emphysematous changes. OTHER: No free air under the diaphragm. Degenerative changes of the spine. IMPRESSION: No acute cardiopulmonary pathology. Reviewed, dictated and finalized at location A. R PUMP INSTALLER
--- NOTE | ~2024-07-16 | CT_ITS ---
EXAMINATION:CT chest high resolution wo co DATE: 07/18/2024 10:08 INDICATION: Shortness of breath and cough. Leukocytosis. TECHNIQUE: Computed tomography (CT) of the chest was performed without intravenous contrast. Automate d exposure control and iterative reconstruction technique were employed. The dose-length product (DLP ) was 136.99 mGy-cm. COMPARISON: Chest CT 06/02/2023 FINDINGS: There is mild scarring at the lung apices. There is mild emphysema. There are patchy ground glass opacities in the upper lobes and right middle lobe. There are tree-in-bud opacities in right lo wer lobe. There is mild atelectasis bilaterally. There is mild bronchiectasis in right middle lobe an d lingula. A calcified right lung nodule and calcified right hilar and mediastinal lymph nodes are co nsistent with old granulomatous disease. No pleural effusion. The heart size is normal. No pericardia l effusion. Calcifications in the liver and spleen are consistent with old granulomatous disease. The re is severe cervical and thoracic spondylosis. IMPRESSION: 1. Bilateral lung disease, likely pneumonia. 2. Mild emphysema. Reviewed, dictated and finalized at location A. CIATE PROFESSOR OF CRIMINAL JUSTICE
[2024-07-16 16:47] VITALS: BP 158/92; PULSE 115; RESP 20; TEMP 37.4; O2SAT 91
--- NOTE | 2024-07-16 16:51 | ED_ITS ---
HPI - SOB/Dyspnea General Chief Complaint: Upper Respiratory Infection Stated Complaint: cough Time Seen by Provider: 07/16/24 16:51 Source: patient Mode of arrival: ambulatory Limitations: no limitations History of Present Illness HPI Narrative: patient is a 54-year-old female with known COPD and having worse shortness of breath over the past 3 days. She has cough and congestion. she smokes 1 and half packs a day. MD elicited complaint: shortness of breath and cough Pertinent past history: COPD Onset (ago): day(s) (3) Context: occurred during exertion Timing: constant Severity: moderate Exacerbating factors: exertion Relieving factors: nothing Known history of: COPD Associated symptoms: cough and wheezing Treatment prior to arrival: none Related Data Home oxygen amount: none Home Medications Medication Instructions Recorded Confirmed citalopram 40 mg tablet (Celexa) 40 mg PO DAILY 05/30/22 07/16/24 divalproex 500 mg tablet,extended 500 mg PO BID 05/30/22 07/16/24 release 24 hr (Depakote ER) sumatriptan succinate 100 mg 100 mg PO PRN PRN Migraine Headache 06/02/23 07/16/24 tablet (Imitrex) oxycodone-acetaminophen 5 mg-325 5 tablet PO Q6-8H PRN Pain, 09/30/23 07/16/24 mg tablet Moderate Allergies Allergy/AdvReac Type Severity Reaction Status Date / Time Sulfa (Sulfonamide AdvReac Unknown Verified 07/16/24 16:56 Antibiotics) Review of Systems Review of Systems: All systems reviewed & are unremarkable except as noted in HPI and below Constitutional: Constitutional: Reports no additional constitutional complaints Eyes: Eyes: Reports no additional eye complaints ENT: Reports system reviewed and no additional complaints, except as documented Cardiovascular: Cardiovascular: Reports no additional cardiovascular complaints Respiratory: Respiratory: Reports no additional respiratory complaints Gastrointestinal: Gastrointestinal: Reports no additional gastrointestinal complaints Genitourinary: Genitourinary: Reports no additional female genitourinary complaints Musculoskeletal: Musculoskeletal: Reports no additional musculoskeletal complaints Integumentary/Breasts: Skin/Breast: Reports system reviewed and no additional complaints, except as docu Neurologic: Reports system reviewed and no additional complaints, except as documented Psychiatric: Psychiatric: Reports no additional psychiatric complaints Endocrine: Endocrine: Reports no additional endocrine complaints Hematologic/Lymphatic: Hematologic/Lymphatic: Reports no additional hematol ogic/lymphatic complaints Allergic/Immunologic: Allergic/Immunologic: Reports no additional allergic/immunologic complaints [facility] Past Medical History Medical History Bipolar depression Bronchitis Chest wall pain COPD (chronic obstructive pulmonary disease) Viral syndrome Surgical History Surgical History H/O breast augmentation H/O: hysterectomy History of ankle surgery ORIF bilateral ankles History of repair of rotator cuff right Hx of appendectomy Hx of cervical spine surgery Hx of cholecystectomy Family History Family History Other Family history of lung cancer Social History Social History Smoking packs per day: 2 Smoking cigarettes per day: 40.0 Years smoked: 30 Smoking pack-years: 60.00 Smoking status: Current every day smoker Alcohol intake: former Alcohol use details: no alcohol for 29 years Substance use type: does not use Gender identity (if verbalized by the patient): Female Exam Const: General: ill appearing Nutritional Appearance: well nourished Orientation/consciousness: patient oriented x3 Limitations: no limitations HENMT: Head: normal to inspection Ears: external ears normal Face/Nose/Sinus: Normal external nose present Eyes: Conjunctivae: conjunctivae normal Pupils: Equal, round and reactive pupils present EOM: EOMs intact bilaterally Neck: Neck: normal visual inspection Chest: Chest palpation & inspection: normal inspection of the chest Resp: Effort & Inspection: abnormal respiratory effort, labored, no r etractions, tachypneic and no use of accessory muscles Auscultation: not clear to auscultation bilaterally, no crackles, rales, rhonchi, wheezes, breath sounds present and diminished lung sounds Cardio: Rate: regular rate Rhythm: regular rhythm Heart sounds: no mur murs GI: Inspection: non-distended GI Palp: Yes Soft to palpation and No Tenderness to palpation present (GI) Auscultation: normal bowel sounds : General: Yes bladder normal to palpation Back/Spine/Pelvis: Back: no CVA tenderness Skin: General skin exam: normal color Rashes: no rashes Wounds: no wounds Neuro: General: patient oriented x3 Cranial nerves: Yes Nystagmus not present Speech: normal speech Gait exam (Neuro): Normal gait present Extrem: General: normal to inspection Psych: Mental Status: mental status grossly normal Affect: normal affect Attitude: cooperative Course Vital Signs Vital signs: Vital Signs Temperature 37.4 C 07/16/24 16:47 Pulse Rate 115 H 07/16/24 16:47 Respiratory Rate 20 07/16/24 16:47 Blood Pressure 158/92 H 07/16/24 16:47 Pulse Oximetry 91 07/16/24 16:47 Oxygen Delivery Room Air 07/16/24 16:47 Temperature 37.4 C 07/16/24 16:47 Pulse Rate 106 H 07/16/24 17:15 Respiratory Rate 20 07/16/24 17:15 Blood Pressure 158/92 H 07/16/24 16:47 Pulse Oximetry 96 07/16/24 17:15 Oxygen Delivery Room Air 07/16/24 16:47 MDM - SOB/Dyspnea MDM Narrative Medical decision making narrative: Patient is a 54-year-old female with COPD exacerbation at this time and we will go ahead and admit her to this facility. She has shortness of breath and still smokes 1 and half packs a day. Respiratory workup did not show a pneumonia but we will go ahead and give her IV antibiotics for occult infection. Lab Data Attestation: I reviewed the patient's lab results. 07/16/24 17:10 07/16/24 17:10 Labs: Lab Results 07/16/24 Range/Units 17:10 WBC 10.7 (4.8-10.8) K/mm3 RBC 5.20 (4.20-5.40) M/mm3 Hgb 15.6 H (12.0-15.0) g/dL Hct 45.3 (35.0-49.0) % MCV 87.1 (78.0-102.0) fL MCH 30.0 (27.0-31.0) pg MCHC 34.4 (32-36) g/dL RDW 14.4 (11.6-14.4) % Plt Count 255 (150-420) K/mm3 MPV 9.0 L (9.2-11.8) fl Immature Gran % (Auto) 0.8 H (0.0-0.0) % Neut % (Auto) 80.6 H (50.0-70.0) % Lymph % (Auto) 16.2 L (18.0-42.0) % [place] % (Auto) 1.9 L (2.0-11.0) % Eos % (Auto) 0.1 L (1.0-6.0) % Baso % (Auto) 0.4 (0.0-1.0) % Lymph # (Auto) 1.73 (1.10-4.50) K/mm3 [place] # (Auto) 0.20 (0.10-0.90) K/mm3 Eos # (Auto) 0.01 L (0.02-0.50) K/mm3 Baso # (Auto) 0.04 (0.00-0.10) K/mm3 Abs Immat Gran (auto) 0.08 H (0.00-0.00) K/mm3 Absolute Neuts (auto) 8.59 H (1.70-7.20) K/mm3 Absolute Nucleated RBC 0.00 (0.00-0.00) K/mm3 Nucleated RBC % 0.0 (0-0.0) % Sodium Pending Potassium Pending Chloride Pending Carbon Dioxide Pending Anion Gap Pending BUN Pending Creatinine Pending Estim Creat Clear Calc Pending Estimated GFR Pending Glucose Pending Calculated Osmolality Pending Calcium Pending Total Bilirubin Pending AST Pending ALT Pending Alkaline Phosphatase Pending Troponin I Pending NT-Pro-B Natriuret Pep Pending Total Protein Pending Albumin Pending Imaging Data Attestation: I personally reviewed and interpreted this imaging study as fo llows: Radiologist's impression: Chest x-ray is negative for acute process ECG Data EKG #1: Attestation: I personally reviewed and interpreted this ECG as follows: ECG completion date: 07/16/24 ECG completion time: 19:23 EKG Interpretation: tachycardia, sinus rhythm, no ectopy, non-specific ST changes, normal QRS, normal QT and NL axis Discharge Plan Discharge Clinical Impression: Acute exacerbation of chronic obstructive pulmonary disease, Hypoxia Patient Disposition: [facility] Condition: Stable Prescriptions: No Action oxycodone-acetaminophen 5-325 mg tablet 5 tablet PO Q6-8H PRN (Reason: Pain, Moderate) fluticasone propionate [Flonase Allergy Relief] 50 mcg/actuation spray,suspens ion 2 spray intranasal DAILY Qty: 16 0RF Rx Instructions: administer into each nostril citalopram [Celexa] 40 mg tablet 40 mg PO DAILY divalproex [Depakote ER] 500 mg tablet extended release 24 hr 500 mg PO BID sumatriptan succinate [Imitrex] 100 mg tablet 100 mg PO PRN PRN (Reason: Migraine Headache) methocarbamol 500 mg tablet 1,000 mg PO Q6H PRN (Reason: muscle pain) Qty: 40 0RF Follow-up/Referrals: Waldo,Afia Chaves APN [Primary Care Provider] - Time of Disposition: 19:26
--- NOTE | 2024-07-16 16:57 | ECG_ITS ---
Test Date: 2024-07-16 17:18:41 Measurements Intervals [place] Rate: 107 P: 75 AK: 143 QRS: -11 QRSD: 96 T: 61 QT: 335 QTc: 448 Interpretive Statements SINUS TACHYCARDIA POSSIBLE RIGHT ATRIAL ENLARGEMENT [0.25mV P-WAVE] NONSPECIFIC ST ABNORMALITY ABNORMAL ECG No previous ECG available for comparison Electronically Signed On 07-17-2024 11:03:41 REVENUE RESEARCH ANALYST by Lonnie Mcrae M.D.
[2024-07-16] MEDS: methylPREDNISolone SOD SUCC 125 MG VIAL IM (17:04)
[2024-07-16 17:06] VITALS: PULSE 107; RESP 20; O2SAT 90
[2024-07-16] MEDS: IPRATROPIUM 0.5 MG/ALBUTEROL SULFATE 2.5 MG AMPUL.NEB 3 ML INHALATION (17:06)
[2024-07-16 17:15] VITALS: PULSE 106; RESP 20; O2SAT 96
[2024-07-16 17:21] LABS: Basophils Absolute Auto 0.04 K/mm3 (0.00-0.10); Basophils Percent Auto 0.4 % (0.0-1.0); Eosinophils Absolute Auto 0.01 K/mm3 (0.02-0.50); Eosinophils Percent Auto 0.1 % (1.0-6.0); Hematocrit 45.3 % (35.0-49.0); Hemoglobin 15.6 g/dL (12.0-15.0); Immature Granulocyte Absolute 0.08 K/mm3 (0.00-0.00); Immature Granulocyte Percent A 0.8 % (0.0-0.0); Lymphocytes Absolute Auto 1.73 K/mm3 (1.10-4.50); Lymphocytes Percent Auto 16.2 % (18.0-42.0); Mean Corpuscular HGB Conc 34.4 g/dL (32-36); Mean Corpuscular Volume 87.1 fL (78.0-102.0); Monocytes Percent Auto 1.9 % (2.0-11.0); Neutrophils Absolute Auto 8.59 K/mm3 (1.70-7.20); Neutrophils Percent Auto 80.6 % (50.0-70.0); Platelet Count Result 255 K/mm3 (150-420); Red Cell Distribution Width 14.4 % (11.6-14.4); White Blood Count 10.7 K/mm3 (4.8-10.8)
[2024-07-16 17:47] LABS: Alanine Aminotransferase 19 U/L (14-59); Albumin Level 3.5 g/dL (3.4-5.0); Alkaline Phosphatase 114 U/L (46-116); Anion Gap 9 mmol/L (4-12); Aspartate Amino Transferase 13 U/L (15-37); Bilirubin,Total 0.4 mg/dL (0.00-1.00); Blood Urea Nitrogen 25 mg/dL (7-18); Calcium 9.3 mg/dL (8.5-10.1); Carbon Dioxide 25 mmol/L (21-32); Chloride 99 mmol/L (98-108); Estimated CRCL calculation 52 ml/min; Estimated Glomerular Filt Rate 59; Glucose 135 mg/dL (70-99); NT Pro B Type Natriuretic Pept 62 pg/mL (0-125); Osmolality Calculated 282 mOsm/kg (285-295); Potassium 4.3 mmol/L (3.5-5.1); Sodium 133 mmol/L (136-145); Total Protein 7.9 g/dL (6.4-8.2); Troponin I < 4.0 ng/L (0.00-60.4)
[2024-07-16 18:03] LABS: Influenza A QL RT-PCR Negative (Negative); Influenza B QL RT-PCR Negative (Negative); RSV RNA, RT-PCR Negative (Negative); SARS-CoV-2 RNA PCR Negative (Negative)
[2024-07-16 19:22] VITALS: PULSE 82; RESP 20; O2SAT 92; O2SAT 94
--- NOTE | 2024-07-16 20:50 | ADMGEN ---
This patient, Patricia Pink, was admitted to 2nd Floor Room 211-1. Patient/family oriented to hospital policies and general routines including ID bracelet, bed and alarms, pain management, procedures, bathroom and other care routines, personal items, smoking policy, room service/diet, and visiting hours. Information on how to activate the Rapid Response Team has been discussed. Patient/Family are encouraged to report perceived risks to care and to ask questions if they do not understand what they are told or what they should do.
[2024-07-16 20:55] VITALS: BMI 28.1
[2024-07-16 21:00] VITALS: PULSE 90; RESP 18; O2SAT 93
[2024-07-16 21:30] VITALS: BP 142/79; PULSE 94; RESP 18; TEMP 36.6; O2SAT 92
[2024-07-16] MEDS: SODIUM CHLORIDE 0.9% IV 1,000 ML 100 ML IV CONT (21:32)
[2024-07-16] MEDS: levoFLOXacin 500 MG/D5W 100 ML 500 MG/100 ML BAG 100 MG IVPB (21:34)
[2024-07-16] MEDS: methylPREDNISolone SOD SUCC 40 MG VIAL 80 MG IV PUSH (21:34)
[2024-07-16] MEDS: ACETAMINOPHEN 325 MG TABLET 650 MG PO (21:54)
[2024-07-17] VITALS (14 sets, daily range): BP systolic 130–168; BP diastolic 70–93; PULSE 70–98; RESP 14–20; TEMP 36–37.1; O2SAT 88–97
[2024-07-17] MEDS: IPRATROPIUM 0.5 MG/ALBUTEROL SULFATE 2.5 MG AMPUL.NEB 3 ML INHALATION ×4 (01:30→16:51)
[2024-07-17] MEDS: DIVALPROEX SODIUM ER 500 MG TAB.24H PO ×3 (01:30→22:00)
[2024-07-17 05:42] LABS: Basophils Absolute Auto 0.02 K/mm3 (0.00-0.10); Basophils Percent Auto 0.2 % (0.0-1.0); Hematocrit 41.1 % (35.0-49.0); Immature Granulocyte Absolute 0.08 K/mm3 (0.00-0.00); Immature Granulocyte Percent A 0.7 % (0.0-0.0); Lymphocytes Absolute Auto 1.88 K/mm3 (1.10-4.50); Mean Corpuscular HGB Conc 34.1 g/dL (32-36); Mean Corpuscular Hemoglobin 29.9 pg (27.0-31.0); Mean Corpuscular Volume 87.6 fL (78.0-102.0); Mean Platelet Volume 9.5 fl (9.2-11.8); Monocytes Absolute Auto 0.25 K/mm3 (0.10-0.90); Monocytes Percent Auto 2.1 % (2.0-11.0); Neutrophils Absolute Auto 9.53 K/mm3 (1.70-7.20); Platelet Count Result 231 K/mm3 (150-420); Red Blood Count 4.69 M/mm3 (4.20-5.40); Red Cell Distribution Width 14.1 % (11.6-14.4); White Blood Count 11.8 K/mm3 (4.8-10.8)
[2024-07-17] MEDS: ACETAMINOPHEN 325 MG TABLET 650 MG PO ×3 (06:00→17:45)
[2024-07-17] MEDS: ONDANSETRON INJ 4 MG/2 ML VIAL IV PUSH (06:00)
[2024-07-17] MEDS: methylPREDNISolone SOD SUCC 40 MG VIAL 80 MG IV PUSH ×3 (06:00→21:59)
[2024-07-17 06:04] LABS: Alanine Aminotransferase 18 U/L (14-59); Albumin Level 2.9 g/dL (3.4-5.0); Alkaline Phosphatase 106 U/L (46-116); Anion Gap 10 mmol/L (4-12); Aspartate Amino Transferase < 10 U/L (15-37); Bilirubin,Total 0.3 mg/dL (0.00-1.00); Blood Urea Nitrogen 29 mg/dL (7-18); Calcium 8.9 mg/dL (8.5-10.1); Carbon Dioxide 24 mmol/L (21-32); Chloride 102 mmol/L (98-108); Estimated CRCL calculation 65 ml/min; Estimated Glomerular Filt Rate > 60; Glucose 145 mg/dL (70-99); Osmolality Calculated 290 mOsm/kg (285-295); Potassium 4.1 mmol/L (3.5-5.1); Sodium 136 mmol/L (136-145); Total Protein 6.8 g/dL (6.4-8.2)
[2024-07-17] MEDS: CITALOPRAM HYDROBROMIDE 20 MG TABLET 40 MG PO (09:47)
[2024-07-17] MEDS: methocarbamoL 500 MG TABLET 1000 MG PO (09:48)
[2024-07-17] MEDS: FLUTICASONE PROPIONATE 0.05% NA SPR 16 GM BTL (*BKC) 2 SPRAY NASAL (09:50)
[2024-07-17] MEDS: NICOTINE (*PBKC) 21 MG PATCH 1 PATCH TRANSDERM (10:58)
[2024-07-17] MEDS: AZITHROMYCIN 500 MG/NS 250 ML 500 MG/250 ML BAG 250 MG IVPB (10:59)
--- NOTE | 2024-07-17 11:23 | PC.NURSE ---
Called [facility] to confirm home medication list.
[2024-07-17] MEDS: SUMAtriptan SUCCINATE 25 MG TABLET 100 MG PO ×2 (12:34→18:25)
--- NOTE | 2024-07-17 13:44 | P.HP_ITS ---
H&P: HPI History of Present Illness Date/Time: 07/17/24 13:44 Chief Complaint: SOB/ Productive cough/ congestion Narrative: patient is a 54-year-old female who presented to the emergency department after worsening shortness of breath, productive cough and congestion. Patient states she has been fighting a cold for the last week and a half to 2 weeks and attempted to take [id number] medications such as NyQuil and DayQuil with no relief. She states she has been unable to sleep at night due to the productive cough and congestion. patient does have a past medical history of COPD, bipolar disorder, migraine, and current smoker. Patient reported atypical chest pain with cough but denied any fever, chills, dizziness, nausea, vomiting, diarrhea or constipation. patient's labs unremarkable on admission however she was requiring supplemental oxygen due to a oxygen saturation of 87% on room air and CXR showing no acute cardiopulmonary pathology. Patient was admitted to the medical unit for further evaluation and treatment of COPD exacerbation and upper respiratory infection. Review of Systems Review of Systems: All systems reviewed & are unremarkable except as noted in HPI and below PMFSH Past Medical History Medical History (Updated 07/17/24 @ 14:01 by Isi Pablo APRN) Bipolar depression Bronchitis Chest wall pain COPD (chronic obstructive pulmonary disease) Viral syndrome Surgical History Surgical History H/O breast augmentation H/O: hysterectomy History of ankle surgery ORIF bilateral ankles History of repair of rotator cuff right Hx of appendectomy Hx of cervical spine surgery Hx of cholecystectomy Family History Family History Other Family history of lung cancer Social History Social History Smoking packs per day: 1.5 Smoking cigarettes per day: 30.0 Years smoked: 35 Smoking pack-years: 52.50 Smoking status: Current every day smoker Tobacco type: cigarettes Alcohol intake: never Alcohol use details: no alcohol for 29 years Substance use: never Substance use type: does not use Other substance usage details: Haven't drank for 13 years; free of marijuana for 14 months Do You Feel Safe in your Home?: Yes Lack of Transportation: No Lack of Food: Never True Current Housing: I Have Housing Concerned About Future Housing: No Difficulty Paying Gas/Electric Bills: No Difficulty Paying for Meds: No Currently Unemployed: No Education: Trade/Vocational Certificate Difficulty w/ Childcare or Family Care: No Gender identity (if verbalized by the patient): Female Spiritual care concerns: No Meds Home Medications and Allergies Home Medications Medication Instructions Recorded Confirmed Type citalopram 40 mg tablet (Celexa) 40 mg PO DAILY 05/30/22 07/17/24 History divalproex 500 mg tablet,extended 500 mg PO BID 05/30/22 07/17/24 History release 24 hr (Depakote ER) sumatriptan succinate 100 mg 100 mg PO PRN PRN Migraine Headache 06/02/23 07/17/24 History tablet (Imitrex) oxycodone-acetaminophen 5 mg-325 5 tablet PO Q6-8H PRN Pain, 09/30/23 07/17/24 History mg tablet Moderate fluticasone propionate 50 2 spray intranasal DAILY #16 grams 10/01/23 07/17/24 Rx mcg/actuation nasal spray,suspension (Flonase Allergy Relief) cetirizine 10 mg tablet (Zyrtec) 10 mg PO DAILY 07/17/24 07/17/24 History meloxicam 15 mg tablet 15 mg PO DAILY 07/17/24 07/17/24 History pregabalin 150 mg capsule 150 mg PO BID 07/17/24 07/17/24 History Allergies Allergy/AdvReac Type Severity Reaction Status Date / Time Sulfa (Sulfonamide AdvReac Unknown Verified 07/16/24 16:56 Antibiotics) Vital Signs Vital Signs - 24 hr 07/16/24 16:47 07/16/24 17:06 07/16/24 17:15 Temperature 99.3 F Pulse Rate 115 H 107 H 106 H Respiratory Rate 20 20 20 Blood Pressure 158/92 H Pulse Oximetry 91 90 96 Oxygen Delivery Room Air Oxygen Flow Rate 07/16/24 19:22 07/16/24 19:22 07/16/24 21:00 Temperature Pulse Rate 82 90 Respiratory Rate 20 18 Blood Pressure Pulse Oximetry 92 94 93 Oxygen Delivery Nasal Cannula Nasal Cannula Nasal Cannula Oxygen Flow Rate 2 2 2 07/16/24 21:30 07/17/24 01:40 07/17/24 00:00 Temperature 97.8 F Pulse Rate 94 74 95 Respiratory Rate 18 18 Blood Pressure 142/79 H Pulse Oximetry 92 90 Oxygen Delivery Nasal Cannula Oxygen Flow Rate 2 2 07/17/24 00:00 07/16/24 21:00 07/17/24 05:31 Temperature 97.6 F Pulse Rate 84 70 Respiratory Rate 18 16 Blood Pressure 130/70 Pulse Oximetry 94 93 88 L Oxygen Delivery Nasal Cannula Oxygen Flow Rate 2 2 07/17/24 05:44 07/17/24 04:00 07/17/24 04:00 Temperature 96.9 F L Pulse Rate 80 73 74 Respiratory Rate 16 18 Blood Pressure 158/75 H Pulse Oximetry 96 90 Oxygen Delivery Nasal Cannula Oxygen Flow Rate 2 2 07/17/24 08:00 07/17/24 08:00 07/17/24 08:00 Temperature 96.8 F L Pulse Rate 85 82 82 Respiratory Rate 14 14 Blood Pressure 138/93 H Pulse Oximetry 95 95 Oxygen Delivery Nasal Cannula Nasal Cannula Oxygen Flow Rate 3 3 07/17/24 11:23 07/17/24 11:32 Temperature Pulse Rate 84 86 Respiratory Rate 20 20 Blood Pressure Pulse Oximetry 90 95 Oxygen Delivery Oxygen Flow Rate 2 Exam Narrative: * GENERAL: Alert and oriented x 3. No acute distress. Pleasant female * EYES:. PERRLA. * HEENT: Moist mucous membranes. * LUNGS: Wheezing throughout on auscultation. Productive cough and pain with inspiration * CARDIOVASCULAR: Regular rate and rhythm. No murmur. No JVD. S1-S2 * ABDOMEN: Soft, non tenderness and non-distended. No palpable masses. * EXTREMITIES: No edema. Non-tender * SKIN: No rashes or lesions. Skin warm, dry. * NEUROLOGIC: No focal neurological deficits. CN II-XII grossly intact * PSYCHIATRIC: Appropriate mood and affect. Good judgement and insight. No visual or auditory hallucinations. No suicidal or homicidal ideation. H&P: Results Labs Labs: Short CBC 07/16/24 07/17/24 Range/Units 17:10 05:35 WBC 10.7 11.8 H (4.8-10.8) K/mm3 Hgb 15.6 H 14.0 (12.0-15.0) g/dL Hct 45.3 41.1 (35.0-49.0) % Plt Count 255 231 (150-420) K/mm3 BMP 07/16/24 07/17/24 17:10 05:35 Sodium 133 L 136 Potassium 4.3 4.1 Chloride 99 102 Carbon Dioxide 25 24 BUN 25 H 29 H Creatinine 0.98 0.77 Glucose 135 H 145 H Calcium 9.3 8.9 Cardiac Enzymes 07/16/24 Range/Units 17:10 Troponin I < 4.0 (0.00-60.4) ng/L Liver Function 07/16/24 07/17/24 Range/Units 17:10 05:35 Total Bilirubin 0.4 0.3 (0.00-1.00) mg/dL AST 13 L < 10 L (15-37) U/L ALT 19 18 (14-59) U/L Alkaline Phosphatase 114 106 (46-116) U/L Albumin 3.5 2.9 L (3.4-5.0) g/dL Imaging Chest x-ray: Radiologist's impression: XR chest 2V Ordering provider: Jose Zabala MD History: 54 years Female with . sob . Comparison: None. FINDINGS: MEDIASTINUM: The cardiac silhouette is not enlarged. Calcified hilar lymph nodes. LUNGS: No infiltrates, effusions or pneumothorax. Underlying emphysematous changes. OTHER: No free air under the diaphragm. Degenerative changes of the spine. IMPRESSION: No acute cardiopulmonary pathology. Assessment and Plan Assessment and plan (1) Acute respiratory failure with hypoxia: Code(s): J96.01 - Acute respiratory failure with hypoxia Status: Acute Assessment and Plan: * Secondary to COPD/URI * SPO2 87% on RA POA * wean O2 to maintain 92% * may need home O2 evaluation prior to discharge * smoking cessation (2) Acute exacerbation of chronic obstructive pulmonary disease: Code(s): J44.1 - Chronic obstructive pulmonary disease with (acute) exacerbation Status: Acute Assessment and Plan: * Bronchodilators. * Chest x-ray reviewed * incentive spirometry while awake. * steroids initiated * azithromycin 500 x 1 day/250 daily * mucolytic * Singulair at night * supplemental oxygen therapy to maintain oxygen 92% currently on 3L NC * DDIMER pending * Evaluation from home O2 if saturation less than 88% on room air. * Smoking cessation counseling done (3) Viral syndrome: Code(s): B34.9 - Viral infection, unspecified Status: Acute Assessment and Plan: * CXR with no cardiopulmonary process * assess sinusitis with severe congestion * patient on azithromycin * mucolytic * supportive care * acetaminophen for fever and mild pain (4) Bipolar depression: Code(s): F31.9 - Bipolar disorder, unspecified Status: Acute Assessment and Plan: * resume patient's Depakote (5) Migraine: Code(s): G43.909 - Migraine, unspecified, not intractable, without status migrainosus Status: Acute Assessment and Plan: * Resumed sumatriptan (6) Tobacco dependency: Code(s): F17.200 - Nicotine dependence, unspecified, uncomplicated Status: Acute Assessment and Plan: ? smoking cessation education ? nicotine patch daily ? remove at night Plan Code status: Full code per patient DVT prophylaxis: Lovenox Stress ulcer prophylaxis: NA PT/OT notes: Ambulatory Disposition: Patient was admitted to the medical unit for COPD exacerbation and acute respiratory failure with hypoxia will continue with current treatment and attempt to wean oxygen requirements. patient is ambulatory and plan will be to return home at discharge however may need home O2 evaluation prior to home. Quality VTE Prophylaxis VTE prophylaxis: pharmacologic ordered -Patient's previous records reviewed on admission -ER notes reviewed in detail on admission -discussed all findings and current treatment plan with patient/Family/POA -Consultations reviewed for recommendations -Patient's disposition for safe discharge discussed with foster care case manager Dictation performed by [employer] direct speech recognition software, therefore customer field representative variants and typographical errors may occur. Hospitalist MIPS Advance Care Plan I have confirmed that the patient's Advanced Care Plan is present, code status is documented, or surrogate decision maker is listed in patient medical record.: Yes Medication Reconciliation I have utilized all available resources to obtain, update and review the patients current medications (includes all prescriptions, OTC, herbals, cannabis, and nutritional supplements).: Yes The patient is not eligible for med reconciliation; the patient is in a emergent medical situation where delaying treatment would jeopardize the patients health.: No
[2024-07-17] MEDS: LORATADINE 10 MG TABLET PO (21:59)
[2024-07-17] MEDS: PREGABALIN (*CRX) 50 MG CAPSULE 150 MG PO (22:00)
[2024-07-17] MEDS: guaiFENesin 12 HR 600 MG TABCR PO (22:00)
[2024-07-17] MEDS: KETOROLAC 30 MG/ML VIAL (*BKC) IV PUSH (22:01)
[2024-07-17] MEDS: traZODone HCL 50 MG TABLET 100 MG PO (23:08)
[2024-07-18] VITALS (15 sets, daily range): BP systolic 130–168; BP diastolic 61–83; PULSE 60–108; RESP 16–20; TEMP 36.2–36.6; O2SAT 92–98
[2024-07-18] MEDS: IPRATROPIUM 0.5 MG/ALBUTEROL SULFATE 2.5 MG AMPUL.NEB 3 ML INHALATION ×4 (05:30→23:57)
[2024-07-18 05:38] LABS: D Dimer 0.33 mg/L (0.19-0.50)
[2024-07-18] MEDS: methylPREDNISolone SOD SUCC 40 MG VIAL 80 MG IV PUSH (06:14)
[2024-07-18 08:27] LABS: Hematocrit 39.7 % (35.0-49.0); Hemoglobin 13.6 g/dL (12.0-15.0); Mean Corpuscular HGB Conc 34.3 g/dL (32-36); Mean Corpuscular Hemoglobin 30.5 pg (27.0-31.0); Mean Platelet Volume 10.3 fl (9.2-11.8); Platelet Count Result 223 K/mm3 (150-420); Red Blood Count 4.46 M/mm3 (4.20-5.40); Red Cell Distribution Width 14.6 % (11.6-14.4)
[2024-07-18 08:30] LABS: White Blood Count 22.1 K/mm3 (4.8-10.8)
--- NOTE | 2024-07-18 08:43 | PC.NURSE ---
PAPER MACHINE OPERATOR aware of WBC count of 22.1.
[2024-07-18 08:53] LABS: Alanine Aminotransferase 14 U/L (14-59); Albumin Level 2.7 g/dL (3.4-5.0); Alkaline Phosphatase 85 U/L (46-116); Anion Gap 9 mmol/L (4-12); Aspartate Amino Transferase < 10 U/L (15-37); Bilirubin,Total 0.3 mg/dL (0.00-1.00); Blood Urea Nitrogen 34 mg/dL (7-18); Carbon Dioxide 28 mmol/L (21-32); Chloride 104 mmol/L (98-108); Estimated CRCL calculation 63 ml/min; Estimated Glomerular Filt Rate > 60; Glucose 141 mg/dL (70-99); Osmolality Calculated 301 mOsm/kg (285-295); Potassium 4.4 mmol/L (3.5-5.1); Sodium 141 mmol/L (136-145); Total Protein 6.3 g/dL (6.4-8.2)
[2024-07-18] MEDS: NICOTINE (*PBKC) 21 MG PATCH 1 PATCH TRANSDERM (09:33)
[2024-07-18] MEDS: ACETAMINOPHEN 325 MG TABLET 650 MG PO (09:34)
[2024-07-18] MEDS: AZITHROMYCIN 250 MG TABLET 500 MG PO (09:34)
[2024-07-18] MEDS: ENOXAPARIN 40 MG/0.4 ML SYRINGE SUB-Q (09:34)
[2024-07-18] MEDS: predniSONE 20 MG TABLET 40 MG PO (09:34)
[2024-07-18] MEDS: DIVALPROEX SODIUM ER 500 MG TAB.24H PO ×2 (09:35→21:20)
[2024-07-18] MEDS: CITALOPRAM HYDROBROMIDE 20 MG TABLET 40 MG PO (09:35)
[2024-07-18] MEDS: PREGABALIN (*CRX) 50 MG CAPSULE 150 MG PO ×2 (09:35→21:19)
[2024-07-18] MEDS: guaiFENesin 12 HR 600 MG TABCR PO ×2 (09:35→21:20)
[2024-07-18] MEDS: FLUTICASONE PROPIONATE 0.05% NA SPR 16 GM BTL (*BKC) 2 SPRAY NASAL (09:35)
--- NOTE | 2024-07-18 11:49 | P.PNIM_ITS ---
Progress Note: A&P Assessment and Plan (1) Acute respiratory failure with hypoxia: Code(s): J96.01 - Acute respiratory failure with hypoxia Status: Acute Assessment and Plan: * Secondary to COPD/URI/Pneumonia * SPO2 87% on RA POA * wean O2 to maintain 92% * may need home O2 evaluation prior to discharge * smoking cessation (2) Pneumonia: Code(s): J18.9 - Pneumonia, unspecified organism Status: Acute Assessment and Plan: Patient had worsening WBC overnight still requiring oxygen overnight * WBC bumped to 22 today could be some reactive to steroids * Ordered CT chest which showed bilateral Pneumonia * added Rocephin with azithromycin * MRSA pending * mucolytic * incentive spirometer * acetaminophen for fever and mild pain * DuoNeb * transition prednisone to 40 mg p.o. patient with underlying COPD * was requiring 3 L supplemental oxygen continue to wean as tolerated to maintain 92% (3) Acute exacerbation of chronic obstructive pulmonary disease: Code(s): J44.1 - Chronic obstructive pulmonary disease with (acute) exacerbation Status: Acute Assessment and Plan: * Bronchodilators. * Chest x-ray reviewed * incentive spirometry while awake. * steroids initiated * azithromycin 500 x 1 day/250 daily * mucolytic * Singulair at night * supplemental oxygen therapy to maintain oxygen 92% currently on 3L NC * DDIMER WNL * Evaluation from home O2 if saturation less than 88% on room air. * Smoking cessation counseling done * added nicotine patch (4) Viral syndrome: Code(s): B34.9 - Viral infection, unspecified Status: Acute Assessment and Plan: * CXR with no cardiopulmonary process * assess sinusitis with severe congestion * patient on azithromycin * mucolytic * supportive care * acetaminophen for fever and mild pain (5) Bipolar depression: Code(s): F31.9 - Bipolar disorder, unspecified Status: Acute Assessment and Plan: * resume patient's Depakote (6) Migraine: Code(s): G43.909 - Migraine, unspecified, not intractable, without status migrainosus Status: Acute Assessment and Plan: * Resumed sumatriptan (7) Tobacco dependency: Code(s): F17.200 - Nicotine dependence, unspecified, uncomplicated Status: Acute Assessment and Plan: ? smoking cessation education ? nicotine patch daily ? remove at night Plan Code status: Full code per patient DVT prophylaxis: Lovenox Stress ulcer prophylaxis: NA PT/OT notes: Ambulatory Disposition: Patient was admitted to the medical unit for pneumonia, COPD exacerbation and acute respiratory failure with hypoxia . Patient is ambulatory and plan will be to return home at discharge however may need home O2 evaluation prior to home. will continue to wean oxygen as tolerated and monitor WBCs downtrend added Rocephin for further coverage of pneumonia, MRSA pending. Time Spent With Patient Time with patient: 15 - 25 minutes Subjective Date/time seen: 07/18/24 11:49 Interval history: patient is a 54-year-old female who is currently admitted to the medical unit receiving treatment for COPD exacerbation and pneumonia 07/18/2024: Patient still SOB, chest pain with cough, productive cough and required supplemental oxygen overnight. Patient was afebrile overnight, denied chills but reported body aches. Review of Systems Review of Systems: All systems reviewed & are unremarkable except as noted in HPI and below Exam Narrative: * GENERAL: Alert and oriented x 3. No acute distress. Pleasant female * EYES:. PERRLA. * HEENT: Moist mucous membranes. * LUNGS: Wheezing throughout on auscultation. Productive cough and pain with inspiration * CARDIOVASCULAR: Regular rate and rhythm. No murmur. No JVD. S1-S2 * ABDOMEN: Soft, non tenderness and non-distended. No palpable masses. * EXTREMITIES: No edema. Non-tender * SKIN: No rashes or lesions. Skin warm, dry. * NEUROLOGIC: No focal neurological deficits. CN II-XII grossly intact * PSYCHIATRIC: Appropriate mood and affect. Good judgement and insight. No visual or auditory hallucinations. No suicidal or homicidal ideation. Objective Data Vital Signs Vital Signs: Vital Signs - 24 hr 07/17/24 12:00 07/17/24 12:00 07/17/24 16:51 Temperature 96.9 F L Pulse Rate 78 82 85 Respiratory Rate 14 20 Blood Pressure 138/75 Pulse Oximetry 96 92 Oxygen Delivery Nasal Cannula Oxygen Flow Rate 3 07/17/24 16:00 07/17/24 16:59 07/17/24 16:00 Temperature 98.7 F Pulse Rate 85 88 98 Respiratory Rate 20 16 Blood Pressure 150/75 H Pulse Oximetry 97 93 Oxygen Delivery Nasal Cannula Oxygen Flow Rate 2 07/17/24 20:00 07/17/24 20:00 07/18/24 00:00 Temperature 97.8 F Pulse Rate 94 85 75 Respiratory Rate 16 Blood Pressure 168/83 H Pulse Oximetry 93 Oxygen Delivery Nasal Cannula Oxygen Flow Rate 2 07/18/24 00:00 07/18/24 04:00 07/18/24 04:00 Temperature 97.8 F 97.8 F Pulse Rate 85 61 85 Respiratory Rate 16 16 Blood Pressure 168/83 H 160/78 H Pulse Oximetry 93 95 Oxygen Delivery Nasal Cannula Nasal Cannula Oxygen Flow Rate 2 2 07/18/24 05:31 07/18/24 05:42 07/18/24 07:50 Temperature 97.1 F L Pulse Rate 60 88 83 Respiratory Rate 16 16 16 Blood Pressure 157/82 H Pulse Oximetry 93 97 93 Oxygen Delivery Room Air Oxygen Flow Rate 07/18/24 08:35 07/18/24 11:25 07/18/24 11:35 Temperature Pulse Rate 75 68 72 Respiratory Rate 20 20 Blood Pressure Pulse Oximetry 93 96 Oxygen Delivery Oxygen Flow Rate Intake/Output Intake/Output: Intake & Output 07/15/24 07/16/24 07/17/24 07/18/24 23:59 23:59 23:59 23:59 Intake Total 100 3345 780 Output Total 1400 Balance 100 1945 780 Meds/Results Medications: Active Medications Generic Name Dose Route Start Last Admin Trade Name Freq PRN Reason Stop Dose Admin Acetaminophen 650 mg 07/16/24 19:26 07/18/24 09:34 Acetaminophen 325 Mg Tablet PO 650 mg Q4H PRN Administration Mild Pain (1-3) or Fever Albuterol/Ipratropium 3 ml 07/17/24 00:30 07/18/24 11:29 Ipratropium 0.5 Mg/Albuterol Sulfate 2.5 Mg Ampul.Neb 3 Ml INHALATION 3 ml Q6HRT [facility] Administration Azithromycin 500 mg 07/18/24 09:00 07/18/24 09:34 Azithromycin 250 Mg Tablet PO 07/21/24 09:01 500 mg DAILY [facility] Administration Citalopram Hydrobromide 40 mg 07/17/24 09:00 07/18/24 09:35 Citalopram Hydrobromide 20 Mg Tablet PO 40 mg DAILY [facility] Administration Divalproex Sodium 500 mg 07/16/24 22:05 07/18/24 09:35 Divalproex Sodium Er 500 Mg Tab.24h PO 500 mg Q12HR [facility] Administration Enoxaparin Sodium 40 mg 07/17/24 09:00 07/18/24 09:34 Enoxaparin 40 Mg/0.4 Ml Syringe SUB-Q 40 mg DAILY [facility] Administration Fluticasone Propionate 2 spray 07/17/24 09:00 07/18/24 09:35 Fluticasone Propionate 0.05% Na Spr 16 Gm Btl (*Bkc) NASAL 2 spray DAILY [facility] Administration Guaifenesin 600 mg 07/17/24 21:00 07/18/24 09:35 Guaifenesin 12 Hr 600 Mg Tabcr PO 600 mg Q12HR [facility] Administration Ceftriaxone Sodium 1 gm in 50 mls @ 100 mls/hr 07/18/24 11:50 Rocephin 1 Gm/Ns 50 Ml IVPB Q24H [facility] Ketorolac Tromethamine 30 mg 07/17/24 11:25 07/17/24 22:01 Ketorolac 30 Mg/Ml Vial (*Bkc) IV PUSH 30 mg Q6H PRN Administration Pain Rated 4-6 Loratadine 10 mg 07/17/24 21:00 07/17/24 21:59 Loratadine 10 Mg Tablet PO 10 mg QHS [facility] Administration Methocarbamol 1,000 mg 07/16/24 21:50 07/17/24 09:48 Methocarbamol 500 Mg Tablet PO 1,000 mg Q6H PRN Administration muscle pain Nicotine 1 patch 07/17/24 11:00 07/18/24 09:33 Nicotine (*Pbkc) 21 Mg Patch TRANSDERM 1 patch DAILY [facility] Administration Ondansetron HCl 4 mg 07/16/24 19:26 07/17/24 06:00 Ondansetron Inj 4 Mg/2 Ml Vial IV PUSH 4 mg Q6H PRN Administration Nausea And Vomiting Oxycodone/Acetaminophen 1 tablet 07/17/24 09:46 Oxycodone/Acetaminophen (*Crx) 5-325 Mg Tablet PO Q6-8H PRN pain 7-10 Prednisone 40 mg 07/18/24 08:15 07/18/24 09:34 Prednisone 20 Mg Tablet PO 40 mg DAILY@0800 [facility] Administration Pregabalin 150 mg 07/17/24 21:00 07/18/24 09:35 Pregabalin (*Crx) 50 Mg Capsule PO 150 mg Q12HR [facility] Administration Trazodone HCl 100 mg 07/17/24 22:14 07/17/24 23:08 Trazodone Hcl 50 Mg Tablet PO 100 mg HS PRN Administration Insomnia Radiology Results: ITS Impressions Chest X-Ray 07/16/24 17:50 IMPRESSION: No acute cardiopulmonary pathology. High Resolution CT 07/18/24 10:23 IMPRESSION: 1. Bilateral lung disease, likely pneumonia. 2. Mild emphysema. Labs Labs: Laboratory Results - last 24 hr 07/18/24 05:19 WBC 22.1 H* RBC 4.46 Hgb 13.6 Hct 39.7 MCV 89.0 MCH 30.5 MCHC 34.3 RDW 14.6 H Plt Count 223 MPV 10.3 D-Dimer 0.33 Sodium 141 Potassium 4.4 Chloride 104 Carbon Dioxide 28 Anion Gap 9 BUN 34 H Creatinine 0.80 Estim Creat Clear Calc 63 Estimated GFR > 60 Glucose 141 H Calculated Osmolality 301 H Calcium 9.0 Total Bilirubin 0.3 AST < 10 L ALT 14 Alkaline Phosphatase 85 Total Protein 6.3 L Albumin 2.7 L Quality VTE Prophylaxis VTE prophylaxis: pharmacologic ordered -Patient's previous records reviewed on admission -ER notes reviewed in detail on admission -discussed all findings and current treatment plan with patient/Family/POA -Consultations reviewed for recommendations -Patient's disposition for safe discharge discussed with director case Dictation performed by [employer] direct speech recognition software, therefore metal moulder variants and typographical errors may occur. Hospitalist MIPS Advance Care Plan I have confirmed that the patient's Advanced Care Plan is present, code status is documented, or surrogate decision maker is listed in patient medical record.: Yes Medication Reconciliation I have utilized all available resources to obtain, update and review the patients current medications (includes all prescriptions, OTC, herbals, cannabis, and nutritional supplements).: Yes The patient is not eligible for med reconciliation; the patient is in a emergent medical situation where delaying treatment would jeopardize the patients health.: No
[2024-07-18] MEDS: KETOROLAC 30 MG/ML VIAL (*BKC) IV PUSH ×2 (12:28→21:28)
[2024-07-18] MEDS: oxyCODONE/ACETAMINOPHEN (*CRX) 5-325 MG TABLET 1 TABLET PO (16:43)
[2024-07-18] MEDS: ONDANSETRON INJ 4 MG/2 ML VIAL IV PUSH (16:47)
[2024-07-18] MEDS: traZODone HCL 50 MG TABLET 100 MG PO (21:19)
[2024-07-18] MEDS: LORATADINE 10 MG TABLET PO (21:20)
[2024-07-19] VITALS (11 sets, daily range): BP systolic 133–157; BP diastolic 60–72; PULSE 75–100; RESP 16–20; TEMP 36.4–36.7; O2SAT 93–98
[2024-07-19 01:47] LABS: MRSA (PCR) NOT DETECTED (NOT DETECTE)
[2024-07-19 05:26] LABS: Hematocrit 37.3 % (35.0-49.0); Hemoglobin 12.4 g/dL (12.0-15.0); Mean Corpuscular HGB Conc 33.2 g/dL (32-36); Mean Corpuscular Hemoglobin 29.8 pg (27.0-31.0); Mean Corpuscular Volume 89.7 fL (78.0-102.0); Mean Platelet Volume 8.9 fl (9.2-11.8); Platelet Count Result 213 K/mm3 (150-420); Red Blood Count 4.16 M/mm3 (4.20-5.40); Red Cell Distribution Width 14.8 % (11.6-14.4); White Blood Count 18.5 K/mm3 (4.8-10.8)
[2024-07-19] MEDS: IPRATROPIUM 0.5 MG/ALBUTEROL SULFATE 2.5 MG AMPUL.NEB 3 ML INHALATION ×3 (05:35→16:48)
[2024-07-19 05:43] LABS: Alkaline Phosphatase 80 U/L (46-116); Anion Gap 6 mmol/L (4-12); Bilirubin,Total 0.2 mg/dL (0.00-1.00); Calcium 8.8 mg/dL (8.5-10.1); Carbon Dioxide 30 mmol/L (21-32); Chloride 106 mmol/L (98-108); Estimated CRCL calculation 71 ml/min; Estimated Glomerular Filt Rate > 60; Glucose 112 mg/dL (70-99); Potassium 3.8 mmol/L (3.5-5.1); Sodium 142 mmol/L (136-145); Total Protein 5.6 g/dL (6.4-8.2)
[2024-07-19 05:55] LABS: Alanine Aminotransferase 14 U/L (14-59); Albumin Level 2.4 g/dL (3.4-5.0); Aspartate Amino Transferase < 10 U/L (15-37); Blood Urea Nitrogen 32 mg/dL (7-18); Osmolality Calculated 301 mOsm/kg (285-295)
[2024-07-19] MEDS: NICOTINE (*PBKC) 21 MG PATCH 1 PATCH TRANSDERM (09:35)
[2024-07-19] MEDS: FLUTICASONE PROPIONATE 0.05% NA SPR 16 GM BTL (*BKC) 2 SPRAY NASAL (09:35)
[2024-07-19] MEDS: PREGABALIN (*CRX) 50 MG CAPSULE 150 MG PO ×2 (09:36→21:01)
[2024-07-19] MEDS: ENOXAPARIN 40 MG/0.4 ML SYRINGE SUB-Q (09:36)
[2024-07-19] MEDS: CITALOPRAM HYDROBROMIDE 20 MG TABLET 40 MG PO (09:36)
[2024-07-19] MEDS: AZITHROMYCIN 250 MG TABLET 500 MG PO (09:36)
[2024-07-19] MEDS: DIVALPROEX SODIUM ER 500 MG TAB.24H PO ×2 (09:36→21:02)
[2024-07-19] MEDS: predniSONE 20 MG TABLET 40 MG PO (09:36)
[2024-07-19] MEDS: guaiFENesin 12 HR 600 MG TABCR PO ×2 (09:36→21:02)
[2024-07-19] MEDS: KETOROLAC 30 MG/ML VIAL (*BKC) IV PUSH (12:01)
[2024-07-19] MEDS: ONDANSETRON INJ 4 MG/2 ML VIAL IV PUSH ×2 (12:01→19:47)
--- NOTE | 2024-07-19 12:16 | PC.NURSE ---
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
--- NOTE | 2024-07-19 15:33 | P.PNIM_ITS ---
Progress Note: A&P Assessment and Plan (1) Acute respiratory failure with hypoxia: Code(s): J96.01 - Acute respiratory failure with hypoxia Status: Acute Assessment and Plan: * Secondary to COPD/URI/Pneumonia * SPO2 87% on RA POA * wean O2 to maintain 92% * may need home O2 evaluation prior to discharge * smoking cessation Weaned to RA (2) Pneumonia: Code(s): J18.9 - Pneumonia, unspecified organism Status: Acute Assessment and Plan: Patient had worsening WBC overnight still requiring oxygen overnight * WBC bumped to 22 today could be some reactive to steroids * Ordered CT chest which showed bilateral Pneumonia * added Rocephin with azithromycin * MRSA pending * mucolytic * incentive spirometer * acetaminophen for fever and mild pain * DuoNeb * transition prednisone to 40 mg p.o. patient with underlying COPD * was requiring 3 L supplemental oxygen continue to wean as tolerated to maintain 92% 07/19/2024 * Patient improving oxygen weaned to RA WBC down to 18.5 * MRSA negative * will transition to oral ABX tomorrow if she continues to improve (3) Acute exacerbation of chronic obstructive pulmonary disease: Code(s): J44.1 - Chronic obstructive pulmonary disease with (acute) exacerbation Status: Acute Assessment and Plan: * Bronchodilators. * Chest x-ray reviewed * incentive spirometry while awake. * steroids initiated * azithromycin 500 x 1 day/250 daily * mucolytic * Singulair at night * supplemental oxygen therapy to maintain oxygen 92% currently on 3L NC * DDIMER WNL * Evaluation from home O2 if saturation less than 88% on room air. * Smoking cessation counseling done * added nicotine patch (4) Viral syndrome: Code(s): B34.9 - Viral infection, unspecified Status: Acute Assessment and Plan: * CXR with no cardiopulmonary process * assess sinusitis with severe congestion * patient on azithromycin * mucolytic * supportive care * acetaminophen for fever and mild pain (5) Bipolar depression: Code(s): F31.9 - Bipolar disorder, unspecified Status: Acute Assessment and Plan: * resume patient's Depakote (6) Migraine: Code(s): G43.909 - Migraine, unspecified, not intractable, without status migrainosus Status: Acute Assessment and Plan: * Resumed sumatriptan (7) Tobacco dependency: Code(s): F17.200 - Nicotine dependence, unspecified, uncomplicated Status: Acute Assessment and Plan: ? smoking cessation education ? nicotine patch daily ? remove at night 07/22/2024 * requesting nicotine patches at discharge Plan Code status: Full code per patient DVT prophylaxis: Lovenox Stress ulcer prophylaxis: NA PT/OT notes: Ambulatory Disposition: Patient was admitted to the medical unit for pneumonia, COPD exacerbation and acute respiratory failure with hypoxia . Patient is ambulatory and plan will be to return home at discharge however may need home O2 evaluation prior to home. will continue to wean oxygen as tolerated and monitor WBCs downtrend added Rocephin for further coverage of pneumonia, MRSA negative plan for discharge tomorrow if no events overnight. Time Spent With Patient Time with patient: 15 - 25 minutes Subjective Date/time seen: 07/19/24 15:33 Interval history: patient is a 54-year-old female who is currently admitted to the medical unit receiving treatment for COPD exacerbation and pneumonia 07/18/2024: Patient still SOB with productive cough but improving weaned of oxygen. WBC trending down today at 18.5, afebrile denied CP, palpitation, chilld, N/V. Review of Systems Review of Systems: All systems reviewed & are unremarkable except as noted in HPI and below Exam Narrative: * GENERAL: Alert and oriented x 3. No acute distress. Pleasant female * EYES:. PERRLA. * HEENT: Moist mucous membranes. * LUNGS: Wheezing throughout on auscultation. Productive cough and mild pain with inspiration * CARDIOVASCULAR: Regular rate and rhythm. No murmur. No JVD. S1-S2 * ABDOMEN: Soft, non tenderness and non-distended. No palpable masses. * EXTREMITIES: No edema. Non-tender * SKIN: No rashes or lesions. Skin warm, dry. * NEUROLOGIC: No focal neurological deficits. CN II-XII grossly intact * PSYCHIATRIC: Appropriate mood and affect. Good judgement and insight. No visual or auditory hallucinations. No suicidal or homicidal ideation. Objective Data Vital Signs Vital Signs: Vital Signs - 24 hr 07/18/24 17:00 07/18/24 16:30 07/18/24 17:06 Temperature Pulse Rate 75 81 78 Respiratory Rate 20 20 Blood Pressure Pulse Oximetry 96 98 Oxygen Delivery 07/18/24 16:35 07/18/24 20:00 07/18/24 20:00 Temperature 97.9 F 97.8 F Pulse Rate 108 H 100 100 Respiratory Rate 18 18 Blood Pressure 130/70 157/61 H Pulse Oximetry 92 93 Oxygen Delivery Room Air Room Air 07/18/24 23:57 07/19/24 00:28 07/19/24 00:00 Temperature Pulse Rate 94 90 100 Respiratory Rate 16 16 Blood Pressure Pulse Oximetry 93 98 Oxygen Delivery 07/19/24 00:00 07/19/24 05:36 07/19/24 04:00 Temperature 98.0 F Pulse Rate 100 88 76 Respiratory Rate 16 16 Blood Pressure 157/60 H Pulse Oximetry 98 93 Oxygen Delivery Room Air 07/19/24 04:00 07/19/24 05:50 07/19/24 08:00 Temperature 97.8 F 97.6 F Pulse Rate 76 100 77 Respiratory Rate 16 16 17 Blood Pressure 150/60 H 133/62 Pulse Oximetry 96 98 93 Oxygen Delivery Room Air Room Air 07/19/24 11:08 07/19/24 11:16 07/19/24 08:00 Temperature Pulse Rate 82 80 75 Respiratory Rate 20 20 Blood Pressure Pulse Oximetry 93 98 Oxygen Delivery Intake/Output Intake/Output: Intake & Output 07/16/24 07/17/24 07/18/24 07/19/24 23:59 23:59 23:59 23:59 Intake Total 100 3345 1550 1150 Output Total 1400 700 Balance 100 8115 493 8728 Meds/Results Medications: Active Medications Generic Name Dose Route Start Last Admin Trade Name Freq PRN Reason Stop Dose Admin Acetaminophen 650 mg 07/16/24 19:26 07/18/24 09:34 Acetaminophen 325 Mg Tablet PO 650 mg Q4H PRN Administration Mild Pain (1-3) or Fever Albuterol/Ipratropium 3 ml 07/17/24 00:30 07/19/24 11:11 Ipratropium 0.5 Mg/Albuterol Sulfate 2.5 Mg Ampul.Neb 3 Ml INHALATION 3 ml Q6HRT [facility] Administration Azithromycin 500 mg 07/18/24 09:00 07/19/24 09:36 Azithromycin 250 Mg Tablet PO 07/21/24 09:01 500 mg DAILY [facility] Administration Citalopram Hydrobromide 40 mg 07/17/24 09:00 07/19/24 09:36 Citalopram Hydrobromide 20 Mg Tablet PO 40 mg DAILY [facility] Administration Divalproex Sodium 500 mg 07/16/24 22:05 07/19/24 09:36 Divalproex Sodium Er 500 Mg Tab.24h PO 500 mg Q12HR [facility] Administration Enoxaparin Sodium 40 mg 07/17/24 09:00 07/19/24 09:36 Enoxaparin 40 Mg/0.4 Ml Syringe SUB-Q 40 mg DAILY [facility] Administration Fluticasone Propionate 2 spray 07/17/24 09:00 07/19/24 09:35 Fluticasone Propionate 0.05% Na Spr 16 Gm Btl (*Bkc) NASAL 2 spray DAILY [facility] Administration Guaifenesin 600 mg 07/17/24 21:00 07/19/24 09:36 Guaifenesin 12 Hr 600 Mg Tabcr PO 600 mg Q12HR [facility] Administration Ceftriaxone Sodium 1 gm in 50 mls @ 100 mls/hr 07/18/24 12:00 07/19/24 12:33 Rocephin 1 Gm/Ns 50 Ml IVPB Infused Q24H [facility] Infusion Ketorolac Tromethamine 30 mg 07/17/24 11:25 07/19/24 12:01 Ketorolac 30 Mg/Ml Vial (*Bkc) IV PUSH 30 mg Q6H PRN Administration Pain Rated 4-6 Loratadine 10 mg 07/17/24 21:00 07/18/24 21:20 Loratadine 10 Mg Tablet PO 10 mg QHS [facility] Administration Methocarbamol 1,000 mg 07/16/24 21:50 07/17/24 09:48 Methocarbamol 500 Mg Tablet PO 1,000 mg Q6H PRN Administration muscle pain Nicotine 1 patch 07/17/24 11:00 07/19/24 09:35 Nicotine (*Pbkc) 21 Mg Patch TRANSDERM 1 patch DAILY [facility] Administration Ondansetron HCl 4 mg 07/16/24 19:26 07/19/24 12:01 Ondansetron Inj 4 Mg/2 Ml Vial IV PUSH 4 mg Q6H PRN Administration Nausea And Vomiting Oxycodone/Acetaminophen 1 tablet 07/17/24 09:46 07/18/24 16:43 Oxycodone/Acetaminophen (*Crx) 5-325 Mg Tablet PO 1 tablet Q6-8H PRN Administration pain 7-10 Prednisone 40 mg 07/18/24 08:15 07/19/24 09:36 Prednisone 20 Mg Tablet PO 40 mg DAILY@0800 [facility] Administration Pregabalin 150 mg 07/17/24 21:00 07/19/24 09:36 Pregabalin (*Crx) 50 Mg Capsule PO 150 mg Q12HR [facility] Administration Senna/Docusate Sodium 1 tab 07/19/24 21:00 Senna/Docusate Sodium Tablet PO HS [facility] Trazodone HCl 100 mg 07/17/24 22:14 07/18/24 21:19 Trazodone Hcl 50 Mg Tablet PO 100 mg HS PRN Administration Insomnia Radiology Results: ITS Impressions Chest X-Ray 07/16/24 17:50 IMPRESSION: No acute cardiopulmonary pathology. High Resolution CT 07/18/24 10:23 IMPRESSION: 1. Bilateral lung disease, likely pneumonia. 2. Mild emphysema. Labs Labs: Laboratory Results - last 24 hr 07/18/24 07/19/24 11:47 05:22 WBC 18.5 H RBC 4.16 L Hgb 12.4 Hct 37.3 MCV 89.7 MCH 29.8 MCHC 33.2 RDW 14.8 H Plt Count 213 MPV 8.9 L Sodium 142 Potassium 3.8 Chloride 106 Carbon Dioxide 30 Anion Gap 6 BUN 32 H Creatinine 0.70 Estim Creat Clear Calc 71 Estimated GFR > 60 Glucose 112 H Calculated Osmolality 301 H Calcium 8.8 Total Bilirubin 0.2 AST < 10 L ALT 14 Alkaline Phosphatase 80 Total Protein 5.6 L Albumin 2.4 L Nasal MRSA (PCR) Not detected Quality VTE Prophylaxis VTE prophylaxis: pharmacologic ordered -Patient's previous records reviewed on admission -ER notes reviewed in detail on admission -discussed all findings and current treatment plan with patient/Family/POA -Consultations reviewed for recommendations -Patient's disposition for safe discharge discussed with watch case polisher Dictation performed by [employer] direct speech recognition software, therefore electric razor assembler variants and typographical errors may occur. Hospitalist MIPS Advance Care Plan I have confirmed that the patient's Advanced Care Plan is present, code status is documented, or surrogate decision maker is listed in patient medical record.: Yes Medication Reconciliation I have utilized all available resources to obtain, update and review the patients current medications (includes all prescriptions, OTC, herbals, cannabis, and nutritional supplements).: Yes The patient is not eligible for med reconciliation; the patient is in a emergent medical situation where delaying treatment would jeopardize the patients health.: No
[2024-07-19] MEDS: oxyCODONE/ACETAMINOPHEN (*CRX) 5-325 MG TABLET 1 TABLET PO (19:47)
[2024-07-19] MEDS: traZODone HCL 50 MG TABLET 100 MG PO (21:01)
[2024-07-19] MEDS: LORATADINE 10 MG TABLET PO (21:02)
[2024-07-19] MEDS: SENNA/DOCUSATE SODIUM TABLET 1 TAB PO (21:02)
[2024-07-20] VITALS (10 sets, daily range): BP systolic 147–155; BP diastolic 73–82; PULSE 60–88; RESP 15–20; TEMP 36.1–36.6; O2SAT 90–98
[2024-07-20] MEDS: IPRATROPIUM 0.5 MG/ALBUTEROL SULFATE 2.5 MG AMPUL.NEB 3 ML INHALATION ×5 (01:25→23:34)
[2024-07-20 05:17] LABS: Hematocrit 39.4 % (35.0-49.0); Mean Corpuscular Hemoglobin 30.2 pg (27.0-31.0); Mean Corpuscular Volume 91.4 fL (78.0-102.0); Mean Platelet Volume 10.2 fl (9.2-11.8); Platelet Count Result 207 K/mm3 (150-420); Red Blood Count 4.31 M/mm3 (4.20-5.40); Red Cell Distribution Width 14.7 % (11.6-14.4); White Blood Count 13.2 K/mm3 (4.8-10.8)
[2024-07-20 05:35] LABS: Alanine Aminotransferase 22 U/L (14-59); Albumin Level 2.2 g/dL (3.4-5.0); Alkaline Phosphatase 75 U/L (46-116); Anion Gap 5 mmol/L (4-12); Aspartate Amino Transferase 19 U/L (15-37); Bilirubin,Total 0.2 mg/dL (0.00-1.00); Blood Urea Nitrogen 33 mg/dL (7-18); Calcium 8.6 mg/dL (8.5-10.1); Carbon Dioxide 29 mmol/L (21-32); Chloride 105 mmol/L (98-108); Estimated CRCL calculation 72 ml/min; Estimated Glomerular Filt Rate > 60; Glucose 93 mg/dL (70-99); Osmolality Calculated 295 mOsm/kg (285-295); Potassium 4.5 mmol/L (3.5-5.1); Sodium 139 mmol/L (136-145); Total Protein 5.7 g/dL (6.4-8.2)
--- NOTE | 2024-07-20 08:47 | P.PNIM_ITS ---
Progress Note: A&P Assessment and Plan (1) Acute respiratory failure with hypoxia: Code(s): J96.01 - Acute respiratory failure with hypoxia Status: Acute Assessment and Plan: * Secondary to COPD/URI/Pneumonia * SPO2 87% on RA POA * wean O2 to maintain 92% * may need home O2 evaluation prior to discharge * smoking cessation 07/20/2024 * SPO2 90% overnight but improved this am * plan for O2 walk study at discharge (2) Pneumonia: Code(s): J18.9 - Pneumonia, unspecified organism Status: Acute Assessment and Plan: Patient had worsening WBC overnight still requiring oxygen overnight * WBC bumped to 22 today could be some reactive to steroids * Ordered CT chest which showed bilateral Pneumonia * added Rocephin with azithromycin * MRSA pending * mucolytic * incentive spirometer * acetaminophen for fever and mild pain * DuoNeb * transition prednisone to 40 mg p.o. patient with underlying COPD * was requiring 3 L supplemental oxygen continue to wean as tolerated to maintain 92% 07/19/2024 * Patient improving oxygen weaned to RA WBC down to 18.5 * MRSA negative * will transition to oral ABX tomorrow if she continues to improve 07/20/2024 * Patient with hypoxia overnight * WBC trending down * continue with current treatment (3) Acute exacerbation of chronic obstructive pulmonary disease: Code(s): J44.1 - Chronic obstructive pulmonary disease with (acute) exacerbation Status: Acute Assessment and Plan: * Bronchodilators. * Chest x-ray reviewed * incentive spirometry while awake. * steroids initiated * azithromycin 500 x 1 day/250 daily * mucolytic * Singulair at night * supplemental oxygen therapy to maintain oxygen 92% currently on 3L NC * DDIMER WNL * Evaluation from home O2 if saturation less than 88% on room air. * Smoking cessation counseling done * added nicotine patch 07/20/2024 * added Pulmicort BID (4) Bipolar depression: Code(s): F31.9 - Bipolar disorder, unspecified Status: Acute Assessment and Plan: * resume patient's Depakote (5) Migraine: Code(s): G43.909 - Migraine, unspecified, not intractable, without status migrainosus Status: Acute Assessment and Plan: * Resumed sumatriptan L (6) Tobacco dependency: Code(s): F17.200 - Nicotine dependence, unspecified, uncomplicated Status: Acute Assessment and Plan: ? smoking cessation education ? nicotine patch daily ? remove at night 07/22/2024 * requesting nicotine patches at discharge Plan Code status: Full code per patient DVT prophylaxis: Lovenox Stress ulcer prophylaxis: NA PT/OT notes: Ambulatory Disposition: Patient was admitted to the medical unit for pneumonia, COPD exacerbation and acute respiratory failure with hypoxia . Patient is ambulatory and plan will be to return home at discharge however may need home O2 evaluation prior to home. will continue to wean oxygen as tolerated and monitor WBCs downtrend added Rocephin for further coverage of pneumonia. Hypoxia overnight continue with current treatment added pulmicort. Time Spent With Patient Time with patient: 15 - 25 minutes Subjective Date/time seen: 07/20/24 08:47 Interval history: patient is a 54-year-old female who is currently admitted to the medical unit receiving treatment for COPD exacerbation and pneumonia 07/19/2024: Patient continues with SOB and productive cough, reports feeling weak today, oxygen dropped to 90 overnight. WBC improving and afebrile Review of Systems Review of Systems: All systems reviewed & are unremarkable except as noted in HPI and below Exam Narrative: * GENERAL: Alert and oriented x 3. No acute distress. Pleasant female * EYES:. PERRLA. * HEENT: Moist mucous membranes. * LUNGS:Rhonchi and wheezing worse in the RT lobes and scant in the lower LT lobe throughout on auscultation. Productive cough and mild pain with inspiration * CARDIOVASCULAR: Regular rate and rhythm. No murmur. No JVD. S1-S2 * ABDOMEN: Soft, non tenderness and non-distended. No palpable masses. * EXTREMITIES: No edema. Non-tender * SKIN: No rashes or lesions. Skin warm, dry. * NEUROLOGIC: No focal neurological deficits. CN II-XII grossly intact * PSYCHIATRIC: Appropriate mood and affect. Good judgement and insight. No visual or auditory hallucinations. No suicidal or homicidal ideation. Objective Data Vital Signs Vital Signs: Vital Signs - 24 hr 07/19/24 11:08 07/19/24 11:16 07/19/24 16:45 Temperature Pulse Rate 82 80 76 Respiratory Rate 20 20 20 Blood Pressure Pulse Oximetry 93 98 96 Oxygen Delivery Oxygen Flow Rate 07/19/24 16:57 07/19/24 16:00 07/20/24 01:25 Temperature 98 F Pulse Rate 78 88 Respiratory Rate 20 17 Blood Pressure 144/72 H Pulse Oximetry 98 95 92 Oxygen Delivery Room Air Oxygen Flow Rate 0 07/20/24 00:00 07/20/24 01:40 07/20/24 05:50 Temperature 97.9 F Pulse Rate 80 60 87 Respiratory Rate 16 Blood Pressure 148/73 H Pulse Oximetry 93 93 90 Oxygen Delivery Room Air Oxygen Flow Rate 0 0 07/20/24 06:05 Temperature Pulse Rate 79 Respiratory Rate Blood Pressure Pulse Oximetry 96 Oxygen Delivery Oxygen Flow Rate 0 Intake/Output Intake/Output: Intake & Output 07/17/24 07/18/24 07/19/24 07/20/24 23:59 23:59 23:59 23:59 Intake Total 3345 1550 2600 500 Output Total 1400 700 Balance 8910 206 5889 500 Meds/Results Medications: Active Medications Generic Name Dose Route Start Last Admin Trade Name Freq PRN Reason Stop Dose Admin Acetaminophen 650 mg 07/16/24 19:26 07/18/24 09:34 Acetaminophen 325 Mg Tablet PO 650 mg Q4H PRN Administration Mild Pain (1-3) or Fever Albuterol/Ipratropium 3 ml 07/17/24 00:30 07/20/24 06:05 Ipratropium 0.5 Mg/Albuterol Sulfate 2.5 Mg Ampul.Neb 3 Ml INHALATION 3 ml Q6HRT LIMA Administration Azithromycin 500 mg 07/18/24 09:00 07/19/24 09:36 Azithromycin 250 Mg Tablet PO 07/21/24 09:01 500 mg DAILY [facility]A Administration Citalopram Hydrobromide 40 mg 07/17/24 09:00 07/19/24 09:36 Citalopram Hydrobromide 20 Mg Tablet PO 40 mg DAILY [facility] Administration Divalproex Sodium 500 mg 07/16/24 22:05 07/19/24 21:02 Divalproex Sodium Er 500 Mg Tab.24h PO 500 mg Q12HR LIMA Administration Enoxaparin Sodium 40 mg 07/17/24 09:00 07/19/24 09:36 Enoxaparin 40 Mg/0.4 Ml Syringe SUB-Q 40 mg DAILY [facility] Administration Fluticasone Propionate 2 spray 07/17/24 09:00 07/19/24 09:35 Fluticasone Propionate 0.05% Na Spr 16 Gm Btl (*Bkc) NASAL 2 spray DAILY [facility] Administration Guaifenesin 600 mg 07/17/24 21:00 07/19/24 21:02 Guaifenesin 12 Hr 600 Mg Tabcr PO 600 mg Q12HR [facility] Administration Ceftriaxone Sodium 1 gm in 50 mls @ 100 mls/hr 07/18/24 12:00 07/19/24 12:33 Rocephin 1 Gm/Ns 50 Ml IVPB Infused Q24H [facility] Infusion Ketorolac Tromethamine 30 mg 07/17/24 11:25 07/19/24 12:01 Ketorolac 30 Mg/Ml Vial (*Bkc) IV PUSH 30 mg Q6H PRN Administration Pain Rated 4-6 Loratadine 10 mg 07/17/24 21:00 07/19/24 21:02 Loratadine 10 Mg Tablet PO 10 mg QHS [facility] Administration Methocarbamol 1,000 mg 07/16/24 21:50 07/17/24 09:48 Methocarbamol 500 Mg Tablet PO 1,000 mg Q6H PRN Administration muscle pain Nicotine 1 patch 07/17/24 11:00 07/19/24 09:35 Nicotine (*Pbkc) 21 Mg Patch TRANSDERM 1 patch DAILY [facility] Administration Ondansetron HCl 4 mg 07/16/24 19:26 07/19/24 19:47 Ondansetron Inj 4 Mg/2 Ml Vial IV PUSH 4 mg Q6H PRN Administration Nausea And Vomiting Oxycodone/Acetaminophen 1 tablet 07/17/24 09:46 07/19/24 19:47 Oxycodone/Acetaminophen (*Crx) 5-325 Mg Tablet PO 1 tablet Q6-8H PRN Administration pain 7-10 Prednisone 40 mg 07/18/24 08:15 07/19/24 09:36 Prednisone 20 Mg Tablet PO 40 mg DAILY@0800 [facility] Administration Pregabalin 150 mg 07/17/24 21:00 07/19/24 21:01 Pregabalin (*Crx) 50 Mg Capsule PO 150 mg Q12HR [facility] Administration Senna/Docusate Sodium 1 tab 07/19/24 21:00 07/19/24 21:02 Senna/Docusate Sodium Tablet PO 1 tab HS [facility] Administration Trazodone HCl 100 mg 07/17/24 22:14 07/19/24 21:01 Trazodone Hcl 50 Mg Tablet PO 100 mg HS PRN Administration Insomnia Radiology Results: ITS Impressions Chest X-Ray 07/16/24 17:50 IMPRESSION: No acute cardiopulmonary pathology. High Resolution CT 07/18/24 10:23 IMPRESSION: 1. Bilateral lung disease, likely pneumonia. 2. Mild emphysema. Labs Labs: Laboratory Results - last 24 hr 07/20/24 05:11 WBC 13.2 H RBC 4.31 Hgb 13.0 Hct 39.4 MCV 91.4 MCH 30.2 MCHC 33.0 RDW 14.7 H Plt Count 207 MPV 10.2 Sodium 139 Potassium 4.5 Chloride 105 Carbon Dioxide 29 Anion Gap 5 BUN 33 H Creatinine 0.69 Estim Creat Clear Calc 72 Estimated GFR > 60 Glucose 93 Calculated Osmolality 295 Calcium 8.6 Total Bilirubin 0.2 AST 19 ALT 22 Alkaline Phosphatase 75 Total Protein 5.7 L Albumin 2.2 L Quality VTE Prophylaxis VTE prophylaxis: pharmacologic ordered -Patient's previous records reviewed on admission -ER notes reviewed in detail on admission -discussed all findings and current treatment plan with patient/Family/POA -Consultations reviewed for recommendations -Patient's disposition for safe discharge discussed with lining caser Dictation performed by [employer] direct speech recognition software, therefore eligibility manager variants and typographical errors may occur. Hospitalist MIPS Advance Care Plan I have confirmed that the patient's Advanced Care Plan is present, code status is documented, or surrogate decision maker is listed in patient medical record.: Yes Medication Reconciliation I have utilized all available resources to obtain, update and review the patients current medications (includes all prescriptions, OTC, herbals, cannabis, and nutritional supplements).: Yes The patient is not eligible for med reconciliation; the patient is in a emergent medical situation where delaying treatment would jeopardize the patients health.: No
[2024-07-20] MEDS: NICOTINE (*PBKC) 21 MG PATCH 1 PATCH TRANSDERM (09:12)
[2024-07-20] MEDS: PREGABALIN (*CRX) 50 MG CAPSULE 150 MG PO ×2 (09:13→20:14)
[2024-07-20] MEDS: ENOXAPARIN 40 MG/0.4 ML SYRINGE SUB-Q (09:13)
[2024-07-20] MEDS: FLUTICASONE PROPIONATE 0.05% NA SPR 16 GM BTL (*BKC) 2 SPRAY NASAL (09:13)
[2024-07-20] MEDS: DIVALPROEX SODIUM ER 500 MG TAB.24H PO ×2 (09:13→20:15)
[2024-07-20] MEDS: predniSONE 20 MG TABLET 40 MG PO (09:14)
[2024-07-20] MEDS: AZITHROMYCIN 250 MG TABLET 500 MG PO (09:14)
[2024-07-20] MEDS: CITALOPRAM HYDROBROMIDE 20 MG TABLET 40 MG PO (09:14)
[2024-07-20] MEDS: guaiFENesin 12 HR 600 MG TABCR PO ×2 (09:14→20:15)
[2024-07-20] MEDS: BUDESONIDE RESPULE NEB 0.5 MG/2 ML AMP INHALATION ×2 (09:20→18:08)
[2024-07-20] MEDS: KETOROLAC 30 MG/ML VIAL (*BKC) IV PUSH (13:26)
[2024-07-20] MEDS: oxyCODONE/ACETAMINOPHEN (*CRX) 5-325 MG TABLET 1 TABLET PO ×2 (16:36→22:08)
[2024-07-20] MEDS: methocarbamoL 500 MG TABLET 1000 MG PO (18:09)
[2024-07-20] MEDS: SENNA/DOCUSATE SODIUM TABLET 1 TAB PO (20:14)
[2024-07-20] MEDS: LORATADINE 10 MG TABLET PO (20:14)
[2024-07-20] MEDS: traZODone HCL 50 MG TABLET 100 MG PO (20:15)
[2024-07-21 06:47] VITALS: O2SAT 91
[2024-07-21] MEDS: BUDESONIDE RESPULE NEB 0.5 MG/2 ML AMP INHALATION (06:47)
[2024-07-21] MEDS: IPRATROPIUM 0.5 MG/ALBUTEROL SULFATE 2.5 MG AMPUL.NEB 3 ML INHALATION ×2 (06:55→13:04)
[2024-07-21 06:58] LABS: Hematocrit 37.3 % (35.0-49.0); Hemoglobin 12.4 g/dL (12.0-15.0); Mean Corpuscular HGB Conc 33.2 g/dL (32-36); Mean Corpuscular Hemoglobin 29.5 pg (27.0-31.0); Mean Corpuscular Volume 88.8 fL (78.0-102.0); Mean Platelet Volume 9.4 fl (9.2-11.8); Platelet Count Result 241 K/mm3 (150-420); Red Cell Distribution Width 14.6 % (11.6-14.4); White Blood Count 9.4 K/mm3 (4.8-10.8)
[2024-07-21 07:06] VITALS: PULSE 78; O2SAT 97
[2024-07-21 07:11] LABS: Alanine Aminotransferase 18 U/L (14-59); Albumin Level 2.5 g/dL (3.4-5.0); Alkaline Phosphatase 78 U/L (46-116); Anion Gap 4 mmol/L (4-12); Aspartate Amino Transferase < 10 U/L (15-37); Bilirubin,Total 0.3 mg/dL (0.00-1.00); Blood Urea Nitrogen 24 mg/dL (7-18); Calcium 8.9 mg/dL (8.5-10.1); Carbon Dioxide 32 mmol/L (21-32); Chloride 103 mmol/L (98-108); Estimated CRCL calculation 76 ml/min; Estimated Glomerular Filt Rate > 60; Glucose 82 mg/dL (70-99); Osmolality Calculated 291 mOsm/kg (285-295); Potassium 3.8 mmol/L (3.5-5.1); Sodium 139 mmol/L (136-145)
[2024-07-21 08:00] VITALS: BP 157/76; PULSE 86; RESP 20; TEMP 36.4; O2SAT 96
[2024-07-21] MEDS: FLUTICASONE PROPIONATE 0.05% NA SPR 16 GM BTL (*BKC) 2 SPRAY NASAL (08:49)
[2024-07-21] MEDS: DIVALPROEX SODIUM ER 500 MG TAB.24H PO (08:50)
[2024-07-21] MEDS: CITALOPRAM HYDROBROMIDE 20 MG TABLET 40 MG PO (08:50)
[2024-07-21] MEDS: PREGABALIN (*CRX) 50 MG CAPSULE 150 MG PO (08:50)
[2024-07-21] MEDS: AZITHROMYCIN 250 MG TABLET 500 MG PO (08:50)
[2024-07-21] MEDS: predniSONE 20 MG TABLET 40 MG PO (08:50)
[2024-07-21] MEDS: ENOXAPARIN 40 MG/0.4 ML SYRINGE SUB-Q (08:50)
[2024-07-21] MEDS: NICOTINE (*PBKC) 21 MG PATCH 1 PATCH TRANSDERM (08:50)
[2024-07-21] MEDS: guaiFENesin 12 HR 600 MG TABCR PO (08:50)
--- NOTE | 2024-07-21 09:16 | P.DS_ITS ---
DS: Admitting Diagnosis Discharge Date 07/21/2024 Admitting Diagnosis COPD exacerbation/ pneumonia DS: Discharge Diagnosis Discharge Diagnosis (1) Acute respiratory failure with hypoxia: Code(s): J96.01 - Acute respiratory failure with hypoxia Status: Acute (2) Pneumonia: Code(s): J18.9 - Pneumonia, unspecified organism Status: Acute (3) Acute exacerbation of chronic obstructive pulmonary disease: Code(s): J44.1 - Chronic obstructive pulmonary disease with (acute) exacerbation Status: Acute (4) Bipolar depression: Code(s): F31.9 - Bipolar disorder, unspecified Status: Acute (5) Migraine: Code(s): G43.909 - Migraine, unspecified, not intractable, without status migrainosus Status: Acute (6) Tobacco dependency: Code(s): F17.200 - Nicotine dependence, unspecified, uncomplicated Status: Acute Plan Disposition: Discharged to home DS: Summary Hospital Course Reason for hospitalization: Pneumonia/COPD exacerbation Hospital Course: Patient was a 54-year-old female who presented to the emergency department after worsening shortness of breath, productive cough and congestion. Patient states she has been fighting a cold for the last week and a half to 2 weeks and attempted to take atka-gjk-vlliczr medications such as NyQuil and DayQuil with no relief. She states she has been unable to sleep at night due to the productive cough and congestion. patient does have a past medical history of COPD, bipolar disorder, migraine, and current smoker. Patient reported atypical chest pain with cough but denied any fever, chills, dizziness, nausea, vomiting, diarrhea or constipation. patient's labs unremarkable on admission however she was requiring supplemental oxygen due to a oxygen saturation of 87% on room air and CXR showing no acute cardiopulmonary pathology. Patient was admitted to the medical unit for further evaluation and treatment of COPD exacerbation and upper respiratory infection. Patient continued to be hypoxia with treatment of IV ABX Rocephin and azithromycin with slow improvement even on DuoNebs and steroids. patient's WBC bumped to 21.4 so I ordered a CT chest for further evaluation which is when bilateral pneumonia was found. We continued to wean oxygen as tolerated continued with IV antibiotic therapy I did decrease steroids down to 40 oral daily and added Pulmicort and incentive spirometer. Patient continued with productive cough but was improving and eventually weaned off of oxygen would have episodes of hypoxia however day of discharge she was at 97% on room air and reported overall improvement to her productive cough and work of breathing. WBC was back to normal range at 9.4, blood cultures with no growth, and she remained afebrile patient was then able to discharge to home provided her with prescriptions for continued oral antibiotics, Pulmicort inhaler, and nicotine patches encouraged immediate smoking cessation. Patient did report she already had a nebulizer machine and nebulizers at home I encouraged her to continue use until feeling better and as needed. patient encouraged educated that if symptoms returned or worsened and she was having difficulty breathing to return for medical evaluation. patient verbalized understanding and agreed with discharge plan Status at Discharge Functional status at discharge: independent ambulation Time Spent with Patient Time attestation: Total time spent providing and/or coordinating discharge services: Time spent: Greater than 30 minutes Exam Narrative: * GENERAL: Alert and oriented x 3. No acute distress. Pleasant female * EYES:. PERRLA. * HEENT: Moist mucous membranes. * LUNGS:Rhonchi and wheezing improved scant wheezing in the RT lobes and scant in the lower LT lobe on auscultation. Productive cough and mild pain with inspiration improved * CARDIOVASCULAR: Regular rate and rhythm. No murmur. No JVD. S1-S2 * ABDOMEN: Soft, non tenderness and non-distended. No palpable masses. * EXTREMITIES: No edema. Non-tender * SKIN: No rashes or lesions. Skin warm, dry. * NEUROLOGIC: No focal neurological deficits. CN II-XII grossly intact * PSYCHIATRIC: Appropriate mood and affect. Good judgement and insight. No visual or auditory hallucinations. No suicidal or homicidal ideation. DS: Data Data Completed and Pending Labs on day of discharge: Labs from last 24 hours 07/21/24 06:10 WBC 9.4 RBC 4.20 Hgb 12.4 Hct 37.3 MCV 88.8 MCH 29.5 MCHC 33.2 RDW 14.6 H Plt Count 241 MPV 9.4 Sodium 139 Potassium 3.8 Chloride 103 Carbon Dioxide 32 Anion Gap 4 BUN 24 H Creatinine 0.65 Estim Creat Clear Calc 76 Estimated GFR > 60 Glucose 82 Calculated Osmolality 291 Calcium 8.9 Total Bilirubin 0.3 AST < 10 L ALT 18 Alkaline Phosphatase 78 Total Protein 6.0 L Albumin 2.5 L Imaging Radiologist's impression: Radiology Results: ITS Impressions Chest X-Ray 07/16/24 17:50 IMPRESSION: No acute cardiopulmonary pathology. High Resolution CT 07/18/24 10:23 IMPRESSION: 1. Bilateral lung disease, likely pneumonia. 2. Mild emphysema. Discharge Plan Discharge Attending physician on discharge: Domingo Ryan Discharging Clinician: Isi Pablo Anticipated Discharge Date/Time: 07/21/24 08:49 Patient Disposition: Home, Self-Care Activity: unlimited and as tolerated Diet: as tolerated and heart healthy Discharge Instructions: You are being discharged home after treatment for pneumonia and COPD exacerbation I have prescribed oral antibiotics please take as indicated even if feeling better I have also added Pulmicort 2 year COPD regiment I do encouraged immediate smoking cessation and provided a prescription for nicotine patches for assistance. Continue to use your nebulizer treatment at home as needed as well as continued use of your incentive spirometer. you can use acetaminophen for fever and mild pain. I recommend a follow-up with your primary care physician in 1-2 weeks after discharge. I have also attached information on pneumonia and COPD for education and review How can you care for yourself at home? ? Keep track of any new symptoms or changes in your symptoms. ? Rest until you feel better. ? Be safe with medicines. Take your medicines exactly as prescribed. Call your doctor if you think you are having a problem with your medicine. ? Do not drive after taking a prescription pain medicine. ? Ensure to follow-up with primary care physician as indicated and provide updated medication list provided to you at discharge. When should you call for help? Call 911 anytime you think you may need emergency care. For example, call if: ? You passed out (lost consciousness). Call your doctor now or seek immediate medical care if: ? You have new symptoms like fever, difficulty breathing, Chest pain, vomiting, or rash. ? You have new or different pain. ? You are confused and are having trouble thinking clearly. ? Your symptoms are getting worse. Watch closely for changes in your health, and be sure to contact your doctor if: ? You do not get better as expected. Patient Instructions: Antibiotic Form, Guaifenesin (By mouth), Amoxicillin/Clavulanate Potassium (By mouth), Emphysema (DC), Community Acquired Pneumonia (DC), Chronic Lung Disease and Infection Prevention (DC), Nutrition Guidelines for People with COPD (DC) Patient Language: Algerian Stand Alone Forms: General Discharge Information Follow-up/Referrals: Waldo,Afia Chaves APN [Primary Care Provider] - 2 weeks Discharge Medications: New trazodone 50 mg Tablet 100 mg PO HS PRN (Reason: Insomnia) Qty: 60 0RF prednisone 20 mg Tablet 40 mg PO DAILY@0800 Qty: 2 0RF nicotine [Nicoderm CQ] 21 mg/24 hr Patch 24 Hour 1 patch transdermal DAILY Qty: 30 0RF Pulmicort Flexhaler 90 mcg/actuation aerosol powdr breath activated 1 inh inhalation Q12H Qty: 1 0RF amoxicillin-pot clavulanate 875-125 mg tablet 1 tablet PO Q12H Qty: 14 0RF guaifenesin [Mucus Relief ER] 600 mg Tablet Extended Release 12hr 600 mg PO Q12HR Qty: 14 0RF Continued oxycodone-acetaminophen 5-325 mg tablet 5 tablet PO Q6-8H PRN (Reason: Pain, Moderate) fluticasone propionate [Flonase Allergy Relief] 50 mcg/actuation spray,suspension 2 spray intranasal DAILY Qty: 16 0RF Rx Instructions: administer into each nostril cetirizine [Zyrtec] 10 mg Tablet 10 mg PO DAILY meloxicam 15 mg tablet 15 mg PO DAILY pregabalin 150 mg capsule 150 mg PO BID citalopram [Celexa] 40 mg tablet 40 mg PO DAILY divalproex [Depakote ER] 500 mg tablet extended release 24 hr 500 mg PO BID sumatriptan succinate [Imitrex] 100 mg tablet 100 mg PO PRN PRN (Reason: Migraine Headache) Date of admission: 07/19/24 11:52 Primary Care Provider: WaldoAfia Admitting Provider: Domingo Ryan Attending physician on admission: Isi Pablo Condition: Stable Quality VTE Prophylaxis VTE prophylaxis: pharmacologic ordered -Patient's previous records reviewed on admission -ER notes reviewed in detail on admission -discussed all findings and current treatment plan with patient/Family/POA -Consultations reviewed for recommendations -Patient's disposition for safe discharge discussed with child support case officer Dictation performed by [employer] direct speech recognition software, therefore retread mold operator variants and typographical errors may occur. Hospitalist MIPS Heart Failure (Exclusion) Patient has history of Heart Transplant or Left Ventricular Assistive Device?: No IF YES, STOP HERE Heart Failure (Qualifier) Patient has current or prior documentation of LVEF less than or equal to 40%, or mod/servere depressed LVSF?: No IF NO, STOP HERE
[2024-07-21] MEDS: KETOROLAC 30 MG/ML VIAL (*BKC) IV PUSH (13:23)
--- NOTE | 2024-07-21 15:40 | PC.NURSE ---
Discharge instructions reviewed with patient and family. Verbalized understanding. Patient taken off floor per wheelchair.
--- NOTE | 2024-07-23 12:49 | PC.NURSE ---
discharge call back completed, had excellent care, doing well, no questions, special thanks to karine for the excellent care and all the staff for all they did for her.
== END 2024-07-21 15:40 | disposition home or self-care (01) | DRG 139 ==
LOC: CHSED 19:26 → CHS2ND 19:38
PROVIDERS: Admitting Provider Internal Medicine; Emergency Provider Emergency Medicine; PCP Nurse Practitioner Family; Visit Provider Nurse Practitioner Family
DX: J18.9 Pneumonia, unspecified organism (principal); J96.01 Acute respiratory failure with hypoxia; J44.0 Chronic obstructive pulmonary disease with (acute) lower respiratory infection; B34.9 Viral infection, unspecified; F31.9 Bipolar disorder, unspecified; F17.210 Nicotine dependence, cigarettes, uncomplicated
CPT/HCPCS: 36415; 71046; 71250; 80053; 83880; 84484; 85025; 85027; 85380; 87637; 87641; 93005; 94640; 96365; 96372; 96374; 96375; 96376; 99285; A9270; G0378; G0379; J0456; J0696; J1650; J1885; J1956; J2405; J2919; J7030; J7512

== ENCOUNTER 2025-08-11 15:10 | Emergency (ER) | payer OTHER, SELFPAY ==
--- OUTSIDE RECORDS SUMMARY | 2025-08-11 15:17 | XMS_ITS | Clinical Summary ---
Author Organization [facility] Address [address], [facility] [address] [place] [address] Phone Care Team Providers Care Enterprise Business Architect Name Role Phone Omaira Watson MD Primary Care Provider Allergies Active Allergy Reactions Criticality Noted Date Comments Sulfa Antibiotics Unknown 09/26/2018 Medications VENTOLIN HFA 108 (90 Base) MCG/ACT Aerosol Solution 9 Active citalopram (CELEXA) 20 MG Tablet 9 Active divalproex (DEPAKOTE ER) 250 MG TABLET SR 24 HR 9 Active divalproex (DEPAKOTE ER) 500 MG TABLET SR 24 HR 8 Active LORazepam (ATIVAN) 0.5 MG Tablet 0 8 Active nortriptyline (PAMELOR) 25 MG Capsule 8 Active omeprazole (PRILOSEC) 20 MG CAPSULE DELAYED RELEASE 9 Active traZODone (DESYREL) 50 MG Tablet 9 Active mupirocin (BACTROBAN) 2 % Ointment Application Site: apply intranasally TID x 7 days (Description and Location) 1 Tube 1 Active ondansetron (ZOFRAN) 4 MG Tablet Take 1-2 Tablets by mouth every 8 hours as needed for Nausea - 1st line. 10 Tablet 3 Active Social History Tobacco Use Types Packs/Day Years Used Date Smoking Tobacco: Every Day Cigarettes 1.5 29 Smokeless Tobacco: Never Alcohol Use Standard Drinks/Week Comments No 0 (1 standard drink = 0.6 oz pur e alcohol) Comments No Sex and Gender Information Value Date Recorded Sex Assigned at Not on file Legal Sex Female 10:17 PM CDT Gender Identity Not on file Sexual Orientation Not on file Last Filed Vital Signs Vital Sign Reading Time Taken Comments Blood Pressure 147/79 12/11/2022 4:29 PM CDT Pulse 87 12/11/2022 4:29 PM CDT Temperature 36.6 C (97.9 F) 12/11/2022 4:29 PM CDT Respiratory Rate 16 12/11/2022 4:29 PM CDT Oxygen Saturation 97% 12/11/2022 4:29 PM CDT Inhaled Oxygen Concentration - - Weight 62.5 kg (137 lb 12.6 oz) 12/11/2022 4:29 PM CDT Height 157.5 cm (5' 2) 12/11/2022 4:29 PM CDT Body Mass Index 25.2 12/11/2022 4:29 PM CDT Plan of Treatment Health Maintenance Due Date Last Done Comments Hepatitis C Virus (HCV) Screening 1968 Hepatitis B Immunization (1 of 3 - 19+ 3-dose series) 1987 Cologuard 2013 Colonoscopy 2013 Colorectal Cancer Screening 2013 Immunochemical Fecal Occult Blood 2013 Zoster Immunization (2 of 2) 12/06/2024 10/11/2024 Influenza Immunization (#1) 2025 04/18/2024 SARS-COV-2 Immunization ( - season) 2025 Respiratory Syncytial Virus (RSV) Immunization (Adult) (1 - 1-dose 75+ series) 2043 Pneumococcal Immunization (5 0+ years) Completed 04/18/2024 Pneumococcal Immunization Combined Discontinued 2023 DTaP/Tdap/Td Immunization Discontinued 06/27/2024 TdaP Immunization Completed 06/27/2024 Human Papillomavirus (HPV) Immunization (No Doses Required) Completed Meningococcal Immunization (ACWY) Aged Out No longer eligible based on patient's age to complete this topic Rotavirus Immunization Aged Out No lo nger eligible based on patient's age to complete this topic Insurance MEDICAID [employer] Care Teams Enterprise Business Architect Relationship Specialty Start Date End Date Omaira Watson MD [id number] [place] [id number] PCP - General Family Medicine 03/10/21
--- OUTSIDE RECORDS SUMMARY | 2025-08-11 15:17 | XMS_ITS | Clinical Summary ---
Author Organization [facility] Address [address] [place] [address] Care Team Providers Care Math Tutor Name Role Phone Omaira Watson MD Primary Care Provider [phone] Allergies Active Allergy Reactions Criticality Noted Date Comments Sulfa Antibiotics Nausea Only,Unknown 9 Reaction: Nausea, , , Medications citalopram 20 MG tablet Take 40 mg by mouth daily. 2 9 Active divalproex ER 500 MG 24 hr tablet Take 1,000 mg by mouth nightly at bedtime. at bedtime. 2 9 Active nortriptyline 25 MG capsule Take 50 mg by mouth nightly at bedtime. 2 9 Active omeprazole 40 MG capsule Take 40 mg by mouth daily. 1 9 Active albuterol 0.63 MG/3ML nebulizer solution USE 1 VIAL IN NEBULIZER THREE TIMES DAILY NEEDED 2 9 Active ondansetron 4 MG tablet Take 4 mg by mouth as needed. Active albuterol sulfate HFA 108 (90 Base) MCG/ACT inhaler Inhale 2 puffs into the lungs every 4 (four) hours as needed for Wheezing. 18 g 1 Active rizatriptan 10 MG tablet TAKE 1 TABLET BY MOUTH ONCE, MAY REPEAT AFTER TWO HOURS WITH PERSISTENT MIGRAINE. 2 Active Active Problems Problem Noted Date Diagnosed Date Acute pain of right foot 08/16/2019 Traumatic tear of right rotator cuff 07/10/2019 Aftercare following surgery 06/20/2019 Traumatic tear of right rota tor cuff, unspecified tear extent, initial encounter 05/13/2019 Piriformis syndrome, left 03/12/2019 Family History Medical History Relation Comments Breast Cancer Maternal Aunt 1 over 50 Breast Cancer Maternal Aunt 2 over 50 Breast Cancer Maternal Grandmother over 50 COPD Maternal Grandmother Heart Disease Maternal Grandmother Relation Status Comments Maternal Aunt 1 Maternal Aunt 2 Maternal Grandmother Social History Tobacco Use Types Packs/Day Years Used Date Smoking Tobacco: Every Day Cigarettes Smokeless Tobacco: Never Alcohol Use Standard Drinks/Week Comments No 0 (1 standard drink = 0.6 oz pur e alcohol) AUDIT-C Answer Date Recorded Frequency of Alcohol Consumption Never 04/03/2019 Average Number of Drinks Not on file 019 Frequency of Binge Drinking Not on file 03/15 Comments No Sex and Gender Information Value Date Recorded Sex Assigned at Not on file Legal Sex Female 10:15 PM STATION MASTER Gender Identity Not on file Sexual Orientation Not on file Last Filed Vital Signs Vital Sign Reading Time Taken Comments Blood Pressure 97/62 12/30/2021 6:00 AM CDT Pulse 75 12/30/2021 6:00 AM CDT Temperature 37 C (98.6 F) 12/30/2021 3:23 AM CDT Respiratory Rate 13 12/30/2021 6:00 AM CDT Oxygen Saturation 96% 12/30/2021 6:00 AM CDT Inhaled Oxygen Concentration - - Weight 66.7 kg (147 lb) 12/30/2021 3:18 AM CDT Height 157.5 cm (5' 2) 12/30/2021 3:18 AM CDT Body Mass Index 26.89 12/30/2021 3:18 AM CDT Plan of Treatment Health Maintenance Due Date Last Done Comments Cervical Cancer Screening Pa p Smear (Age 30 to 64) Every 3 Years 1968 Colorectal Cancer Screening Colonoscopy (10 Years) 1968 Annual Physical 1971 Hepatitis C 1986 DTaP, Tdap and Td Vaccines ( 1 - Tdap) 1987 Hepatitis B Vaccines (1 of 3 - 19+ 3-dose series) 1987 Pneumococcal Vaccine: 50+ Ye ars (1 of 2 - PCV) 1987 Cervical Cancer Screening Pa p with HPV Testing (Age 30 to 64) Every 5 Years 1998 Cervical Cancer Screening with HPV 1998 Zoster Vaccines (1 of 2) 2018 Mammogram Screening 07/05/2021 07/05/2019 COVID-19 Vaccine (2024-2 6 season) 2025 Influenza Adult (#1) 2025 Hepatitis A Vaccines Aged Out No long er eligible based on patient's age to complete this topic Meningococcal B Vaccine Aged Out No l onger eligible based on patient's age to complete this topic Meningococcal Vaccine Aged Out No bailey gertrudis eligible based on patient's age to complete this topic RSV Immunizations Under 20 Months Aged Out No longer eligible based on patient's age to complete this topic Medical Devices Implanted Type Area [employer] Operator Device Identifier Shelf Expiration Date Model / Serial / Lot Breast Breast [place] Suture Bio-Swivelock C [employer] - [id number] Implanted:Qty: 1 on 06/06/2019 by Jose Lopez MD at [facility] [employer] 01/11/2021 [id number] / / [id number] [place] Suture Bio-Swivelock C [employer]rex White/Black 4.75 X 19.1mm - [id number] Implanted:Qty: 1 on 06/06/2019 by Jose Lopez MD at [facility] [employer] 01/11/2021 [id number] / / [id number] [place] Suture Ar[employer]rex - [id number] Implanted:Qty: 1 on 06/06/2019 by Jose Lopez MD at [facility] [employer] 02/10/2021 [id number] / / [id number] [place] Suture Ar[employer]rex - [id number] Implanted:Qty: 1 on 06/06/2019 by Jose Lopez MD at [facility] [employer] 02/10/2021 [id number] / / [id number] Procedures Procedure Name Priority Date/Time Associated Diagnosis Comments MG SCREENING W ANA ROSA YUE DIGI Routine 07/05/2019 12:10 PM STATION MASTER Visit for screening mammogram from Last 3 Months or Most Recently Relevant to Health Maintenance Results * MG SCREENING W ANA ROSA YUE DIGI (07/05/2019 12:10 PM STATION MASTER) Anatomical Region Laterality Modality Breast Bilateral Mammography 07/05/2019 3:09 PM STATION MASTER Impressions 07/05/2019 3:10 PM STATION MASTER IMPRESSION: No suspicious change since the previous exams. Recommendation: 1: Routine screening mammogram Bilateral in 1 Year Assessment: ACR BI-RADS Category 2 - Benign. Interpreted By: Gian Raza, 07/05/2019 3:09 PM Narrative 07/05/2019 3:10 PM STATION MASTER Examination: Digital screening mammogram with CAD. Clinical history: Asymptomatic patient presents for routine screening. Prior augmentation. Comparison: 01/18/2017, 09/21/2015, 08/08/2014, 03/06/2013. Technique: Bilateral digital mammograms. The exam was interpreted with the use of a computer-aided detection (CAD) system. Additional 3-D tomosynthesis images were acquired. Tissue density: The breast tissue is heterogeneously dense. Findings: The breast tissue is heterogeneously dense. The dense tissue may obscure some lesions mammographically. Bilateral subglandular implants remain in place with stable configuration. Benign-appearing calcification noted. No suspicious mass, microcalcification or area of architectural distortion can be identified. From a mammographic standpoint, routine followup in one year would seem adequate. us Omaira Watson MD MAMMO Final Result from Last 3 Months or Most Recently Relevant to Health Maintenance Insurance [employer] Care Teams Math Tutor Relationship Specialty Start Date End Date Watt, Omaira J, MD [address] [place] [id number] PCP - General FAMILY PRACTICE 03/01/19
--- OUTSIDE RECORDS SUMMARY | 2025-08-11 15:17 | XMS_ITS | Encounter Summary ---
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 Gender Identity Not on file Sexual Orientation Not on file documented as of this encounter Plan of Treatment Not on file documented as of this encounter Visit Diagnoses Not on filedocumented in this encounter Additional Health Concerns Infection Onset Date Last Indicated Resolved Time COVID-19 Rule Out 05/07/2021 05/07/2021 05/07/2021 1:16 PM CDT COVID-19 Rule Out 05/07/2021 05/07/2021 05/08/2021 9:10 PM CDT documented as of this encounter Care Teams Counter Waitress/Waiter Relationship Specialty Start Date End Date Omaira Watson MD [address] [place] [address] PCP - General FAMILY PRACTICE 03/01/19 documented as of this encounter
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
[2025-08-11 15:22] VITALS: BP 142/80; PULSE 104; RESP 18; TEMP 37.2; O2SAT 100
--- NOTE | 2025-08-11 15:41 | ED_ITS ---
HPI - URI/Sore Throat General Chief Complaint: Upper Respiratory Infection Stated Complaint: Congestion,Back Pain Time Seen by Provider: 08/11/25 15:43 Source: patient, RN notes reviewed and old records reviewed Mode of arrival: ambulatory Limitations: no limitations History of Present Illness HPI Narrative: 55year old female presents to [facility] care with complaints of headache. cough, chills, body aches and pain behind her right ear for the past 3 days. Patient reports that she has taken DayQuil, Tylenol,. Ishmael [place] cold medication and has been using her inhalers as ordered. Patient does have history of COPD and continues to use tobacco daily. MD elicited complaint: cough and other (headache, pain behind right ear, chills) Pertinent past history: COPD and other (tobacco abuse) Onset (ago): day(s) (3) Consistency: constant Pain scale (0-10): 6 Able to tolerate fluids by mouth: No Treatments prior to arrival: acetaminophen and other (Inhalers as ordered, DayQuil and ishmael seltzer cold medication) Related Data Home Medications ?Medication ?Instructions ?Recorded ?Confirmed ?Last Taken ?Type cetirizine 10 mg tablet (Zyrtec) 10 mg PO DAILY 07/17/24 Unknown History albuterol sulfate 90 mcg/actuation inhalation 08/11/25 Unknown History aerosol inhaler budesonide-formoterol HFA 160 inhalation 08/11/25 Unk nown History mcg-4.5 mcg/actuation aerosol inhaler (Symbicort) famotidine 20 mg tablet mg 08/11/25 Unknown History topiramate 25 mg tablet mg 08/11/25 Unknown History trazodone 100 mg tablet mg 08/11/25 Unknown History Allergies Allergy/AdvReac Type Severity Reaction Status Date / Time Sulfa (Sulfonamide Allergy Intermediate Hives Verified 08/11/25 15:28 Antibiotics) Review of Systems Review of Systems: CONSTITUTIONAL:reports malaise, chills, sweats, or fever. EYES: Denies visual changes, redness, or discharge. ENT: Reports rhinorrhea, congestion, sinus pain, pain behind right ear, no sore throat. CARDIOVASCULAR: Denies chest pain, palpitations, or edema. RESPIRATORY: Reports cough.? Denies acute dyspnea GASTROINTESTINAL: Denies abdominal pain, nausea, vomiting, diarrhea SKIN: Denies rash or itching. MUSCULOSKELETAL: Reports myalgia. NEUROLOGIC: Reports headache. All systems reviewed & are unremarkable except as noted in HPI and below PMFSH Past Medical History Medical History (Updated 08/12/25 @ 22:52 by Annie Byrd APRN) Bronchitis COPD (chronic obstructive pulmonary disease) Bipolar depression Viral syndrome Chest wall pain Surgical History Surgical History (Updated 08/12/25 @ 22:34 by Annie Byrd APRN) H/O breast augmentation removed in 2023 History of ankle surgery ORIF bilateral ankles History of repair of rotator cuff right Hx of cervical spine surgery H/O: hysterectomy Hx of cholecystectomy Hx of appendectomy Family History Family History Other Family history of lung cancer Social History Social History (Updated 08/12/25 @ 22:39 by Annie Byrd APRN) Smoking packs per day: 1.5 Smoking cigarettes per day: 30.0 Years smoked: 35 Smoking pack-years: 52.50 Smoking status: Current every day smoker Tobacco type: cigarettes Additional smoking assessment comments: reports smokes 1 pack daily now Alcohol intake: never Alcohol use details: no alcohol for 29 years Substance use: never Substance use type: does not use Other substance usage details: Haven't drank for 13 years; free of marijuana for 14 months Lack of Transportation: No Lack of Food: Never True Current Housing: I Have Housing Concerned About Future Housing: No Difficulty Paying Gas/Electric Bills: No Difficulty Paying for Meds: No Currently Unemployed: No Education: Trade/Vocational Certificate Difficulty w/ Childcare or Family Care: No Gender identity (if verbalized by the patient): Female Spiritual care concerns: No Comments At time of signature, agree with nursing past medical, surgical, social and family history. There is no relevant family history pertinent to the presenting complaint Exam Narrative: GENERAL: Well-appearing, well-nourished, and in no acute distress. HEAD: Normocephalic EYES: PERRLA, conjunctivae clear ENT: Nares clear, turbinates edematous and erythematous, clear discharge, sinus pressure and headache. Mucous membranes moist. TM pearly alegre with dull light reflex bilaterally; no tragal tenderness. Oropharynx erythematous without lesions. Tonsils not enlarged and without exudate, no drooling, no hoarseness, no trismus, uvula midline.some post nasal drainage NECK: Supple. No lymphadenopathy CHEST: faint wheezes noted on auscultation, breath sounds equal. + wheezing, rhonchi, rales, or stridor. No respiratory distress, speaks in full sentences.cough noted SAO2 100% on room air with no tachypnea noted. HEART: Regular rate and rhythm. No murmur heard. SKIN: Warm, dry, no rash. NEURO: Alert and oriented x3. PSYCH: Normal mood and affect Course Course Level of Care: Express Care Visit Vital Signs Vital signs: Vital Signs Temperature 37.2 C 08/11/25 15:22 Pulse Rate 104 H 08/11/25 15:22 Respiratory Rate 18 08/11/25 15:22 Blood Pressure 142/80 H 08/11/25 15:22 Pulse Oximetry 100 08/11/25 15:22 Oxygen Delivery Room Air 08/11/25 15:22 Temperature 37.2 C 08/11/25 15:22 Pulse Rate 104 H 08/11/25 15:22 Respiratory Rate 18 08/11/25 15:22 Blood Pressure 142/80 H 08/11/25 15:22 Pulse Oximetry 100 08/11/25 15:22 Oxygen Delivery Room Air 08/11/25 15:22 reviewed [facility] Narrative Medical decision making narrative: 55 year old female with history of COPD presents with cough, chills body aches and pain behind left ear for 3 days. Patient has used her inhalers, taken Tylenol,DayQuil and Ishmael [place] cold medication without resolution. patient tested for COVID and Influenza which were negative. Patient continues to use tobacco daily and has some faint wheezes noted on auscultation. Will treat with Prednisone and Azithromycin RX to patient pharmacy of choice with use of OTC me dication for symptoms. Anticipatory guidance and reasons to seek care in ED reviewed with understanding voiced. Differential Diagnosis Differential Diagnosis: Differential diagnostic considerations for upper respiratory infection include upper respiratory infection, croup, otitis media, sinusitis, viral infection, bronchitis, influenza, pharyngitis, strep, uvulitis., copd? Lab Data [facility] Lab Attestation statement: I personally reviewed the patient's lab results. Lab results narrative: Influenza A&B negative, Covid antigen negative Critical Care Time Critical Care Time Critical Care Time: No Discharge Plan Discharge Clinical Impression: COPD with acute exacerbation, Tobacco dependency Patient Disposition: Home Condition: Stable Instructions: Antibiotic Form, COPD (Chronic Obstructive Pulmonary Disease) (ED) Additional Instructions: Increase fluids especially juices and water [id number] cough and cold medicine of your choice for your symptoms Mucinex daily Continue your inhaler/nebulizer as directed Steroids as directed--take with food heat to the face 20-30 minutes 4-6 times a day for pain Salt water gargles, throat lozenges or throat sprays as desired Antibiotic as directed--finished the medication If your symptoms persist, change or worsen significantly before you can contact your personal physician then please, without delay, go to the emergency department for further evaluation. Follow-up with PCP in 7-10 days or sooner if needed Follow up with PCP soon in regards to your blood pressure which is elevated above threshold for referral. Blood pressure above 120/80 may indicate pre- hypertension.142/80 STOP SMOKING Patient Language: Mauritanian Prescriptions: New prednisone 20 mg tablet 40 mg PO DAILY Qty: 10 0RF azithromycin 250 mg tablet See Rx Instructions .ROUTE .COMPLEX Qty: 6 0RF Rx Instructions: For 250 mg dose pack: take 500 mg today (day 1), then 250 mg for 4 days (days 2-5) No Action cetirizine [Zyrtec] 10 mg Tablet 10 mg PO DAILY trazodone 50 mg Tablet 100 mg PO HS PRN (Reason: Insomnia) Qty: 60 0RF nicotine [Nicoderm CQ] 21 mg/24 hr Patch 24 Hour 1 patch transdermal DAILY Qty: 30 0RF Pulmicort Flexhaler 90 mcg/actuation aerosol powdr breath activated 1 inh inhalation Q12H Qty: 1 0RF ipratropium-albuterol 0.5 mg-3 mg(2.5 mg base)/3 mL solution for nebulization 3 ml inhalation QID PRN (Reason: shortness of breath or wheezing) Qty: 90 0RF topiramate 25 mg tablet famotidine 20 mg tablet trazodone 100 mg tablet albuterol sulfate 90 mcg/actuation HFA aerosol inhaler INHALATION budesonide-formoterol [Symbicort] 160-4.5 mcg/actuation HFA aerosol inhaler INHALATION Follow-up/Referrals: Haas,Afia A., [employer] [Primary Care Provider, Unknown] Time of Disposition: 15:55 Quality Grace Coma Scale Eyes: Open Verbal: Oriented and Alert Motor: Follows Commands Grace Coma Total Score: 15
== END 2025-08-11 15:59 | disposition home or self-care (01) ==
PROVIDERS: Emergency Provider Registered Nurse; PCP Nurse Practitioner Family
DX: J44.1 Chronic obstructive pulmonary disease with (acute) exacerbation (principal); F17.210 Nicotine dependence, cigarettes, uncomplicated; Z79.899 Other long term (current) drug therapy
CPT/HCPCS: 99213; G0463